=== PATIENT | male | born 1955 | race Caucasian/White ===

== ENCOUNTER 2017-03-16 10:56 | Inpatient (IN) | payer OTHER ==
[~2017-03-16] VITALS: Ht 167.6 cm; Wt 72.4 kg
[2017-03-16] MEDS ORDERED: morphine 4 MG/ML VIAL IV STA (11:19)
[2017-03-16] MEDS ORDERED: LIDOCAINE/MYLANTA 40 ML BTL PO STA (11:19)
[2017-03-16] MEDS ORDERED: FAMOTIDINE 20 MG TAB PO STA (11:19)
[2017-03-16] MEDS ORDERED: SOD CHLORIDE 0.9% 1,000 ML IV STA (11:19)
[2017-03-16] MEDS ORDERED: ONDANSETRON 4 MG INJ IV STA (11:19)
[2017-03-16] MEDS ORDERED: BELLADONNA/PHENOBARBITAL TAB PO STA (11:19)
[2017-03-16 11:37] LABS: BASOPHILS % 0.2 % (0.0-2.0); HEMATOCRIT 46.7 % (42.0-52.0); HEMOGLOBIN 15.2 g/dl (14.0-18.0); LYMPHOCYTES # 0.7 10^3/ul (0.8-2.9); LYMPHOCYTES % 4.5 % (15.0-51.0); MEAN CORPUSCULAR HEMOGLOBIN 28.1 pg (29.0-33.0); MEAN CORPUSCULAR HGB CONC 32.5 g/dl (32.0-37.0); MEAN CORPUSCULAR VOLUME 86.3 fl (82.0-101.0); MEAN PLATELET VOLUME 9.8 fl (7.4-10.4); MONOCYTES % 6.1 % (0.0-11.0); NEUTROPHIL # 14.2 10^3/ul (1.6-7.5); NEUTROPHILS % 88.8 % (39.0-77.0); PLATELET COUNT 208 10^3/UL (140-415); RED BLOOD COUNT 5.41 10^6/ul (4.70-6.10); RED CELL DISTRIBUTION WIDTH 12.7 % (11.5-14.5); WHITE BLOOD COUNT 15.9 10^3/ul (4.8-10.8)
[2017-03-16 11:56] LABS: ALANINE AMINOTRANSFERASE 42 IU/L (13-69); ALBUMIN 4.3 g/dl (3.3-4.9); ALBUMIN/GLOBULIN RATIO 1.16; ALKALINE PHOSPHATASE 101 IU/L (42-121); ANION GAP 21 (8-16); ASPARTATE AMINO TRANSFERASE 51 IU/L (15-46); BILIRUBIN,INDIRECT 0.3 mg/dl (0-1.1); BILIRUBIN,TOTAL 0.3 mg/dl (0.2-1.3); BLOOD UREA NITROGEN 15 mg/dl (7-20); CALCIUM 9.5 mg/dl (8.4-10.2); CARBON DIOXIDE 28 mmol/L (21-31); CHLORIDE 101 mmol/L (97-110); CREATININE 0.79 mg/dl (0.61-1.24); GLUCOSE 137 mg/dl (70-220); POTASSIUM 3.4 mmol/L (3.5-5.1); SODIUM 147 mmol/L (135-144)
[2017-03-16 12:18] LABS: TROPONIN-I < 0.012 ng/ml (0.00-0.12)
--- NOTE | 2017-03-16 12:59 | RADRPT ---
PROCEDURE: CT scan of the abdomen and pelvis without IV contrast. CLINICAL INDICATION: 61-year-old male with abdominal pain. TECHNIQUE: Thin section axial, coronal and sagittal images were performed through the abdomen and pelvis without contrast. Radiation Dose: CTDI: 8.5 and DLP: 505. One or more of the following dose reduction techniques were used: - Automated exposure control. - Adjustment of the mA and/or kV according to patient size. Use of iterative reconstruction technique. COMPARISON: Chest x-ray 09/29/2016 06:18 a.m. FINDINGS: Soft tissues: There is a midline umbilical hernia measuring 1.6 cm transverse by 1.4 cm AP.. Lungs and pleural spaces: There are peripheral areas of atelectasis in the bases of the lungs. No alveolar infiltrate, pulmonary nodule or pleural effusion is identified. Heart: The heart is enlarged. No pericardial effusion is identified. The liver, common bile duct and gallbladder: The liver is enlarged measuring 17.8 cm AP. There are small gallstones in the gallbladder without evidence of gallbladder wall thickening. Small amount o f pericholecystic fluid is not excluded. This is better evaluated with ultrasound. No hepatic mass or intrahepatic biliary ductal dilatation is identified. Gastrointestinal: There is a small hiatal hernia with fluid noted in the stomach. No gastric wall t hickening is identified. There are bilateral inguinal hernias which contain fat but no intra-abdomin al. The small bowel loops have a normal caliber. There is no evidence of diverticulosis or divertic ulitis. There is a normal vermiform appendix. Pancreas: Diffuse stranding and enlargement of the pancreas consistent with pancreatitis. No pancre atic pseudocyst is identified. There is only trace ascites. A contrast-enhanced CT scan with arter ial phase imaging can be performed to evaluate for areas of pancreatic necrosis and clinically neede d. Kidneys, bladder and adrenal glands : The adrenal glands are normal. Kidneys and urinary bladder ar e normal. Spleen: Normal. Lymph nodes: Normal. There are small but normal appearing inguinal lymph nodes. Reproductive system and pelvis : The prostate gland is enlarged measuring 5.2 x 3.9 cm. Bony elements: There are degenerative osteophytes in the lower thoracic and lumbar spine. No acute bony fracture or bone metastasis is identified. There are degenerative changes in the right articul ar facets at the lumbosacral junction. Vasculature: There are vascular calcifications in the abdominal aorta and right common iliac artery. IMPRESSION: 1. Acute pancreatitis with trace ascites. No pancreatic pseudocyst is identified. 2. Cardiomegaly with scattered areas of atelectasis in the bases of the lungs. 3. Hepatomegaly with small gallstones in the gallbladder. Ultrasound can be performed to evaluate for possible pericholecystic fluid if clinically indicated. 4. Small hiatal hernia. 5. Atherosclerotic vascular disease. 6. Midline umbilical hernia containing fat measuring 1.4 cm AP by 1.7 cm transverse. There are bila teral inguinal hernias containing fat. 7. Right degenerative facet arthropathy is at L5-S1. RPTAT:AAJJ Physician Warren Date Time Electronically viewed and signed by Julian Velasquez Physician on 03/16/2017 12:59 ROQUE/
[2017-03-16] MEDS ORDERED: SOD CHLORIDE 0.9% 1,000 ML IV ONE (13:30)
--- NOTE | 2017-03-16 13:38 | ERA ---
ER Documentation Chief Complaint Date/Time DATE: 03/16/17 TIME: 13:30 Chief Complaint HPI 61-year-old man presents with sudden onset severe epigastric abdominal pain and multiple episodes of clear nonbloody nonbilious emesis beginning 6 AM this morning shortly after eating a light breakfast. Patient states he had a similar episode a month ago which resolved spontaneously. He does have a history of alcoholism but denies recent drinking, no blood per rectum or melena , no fevers or chills, no trauma, no chest pain or shortness of breath. Abdominal pain has been nonradiating nonexertional. ROS All systems reviewed and are negative except as per history of present illness. Medications Home Meds No Active Prescriptions or Reported Meds Allergies Allergies: Coded Allergies: No Known Allergy (Unverified , 03/16/17) PMhx/Soc Alcoholism Medical and Surgical Hx: Unable to obtain Hx Alcohol Use: Yes Hx Substance Use: No Hx Tobacco Use: No Smoking Status: Never smoker FmHx Family History: No diabetes Physical Exam Vitals Vital Signs Date Time Temp Pulse Resp B/P Pulse Ox O2 Delivery O2 Flow Rate FiO2 03/16/17 13:14 98.0 79 18 138/71 99 03/16/17 10:59 98.0 63 18 147/70 99 Physical Exam GENERAL: Well-developed, well-nourished, moderate discomfort, afebrile HEENT: Moist mucous membranes, pink conjunctiva, no cervical spine tenderness or step-off deformities, no goiter, no jaundice or icterus, extraocular movements intact without pain. No submandibular induration, and no pharyngeal erythema NEURO: Alert and oriented 3, cranial nerves II through XII intact bilaterally, pupils equal round reactive to light, no focal deficits or facial asymmetry, sensation intact distally Strength 5/5 in upper and lower extremities bilaterally CARDIAC: Regular rate and rhythm, no murmurs rubs or gallops LUNGS: Clear bilaterally no wheezing crackles or stridor ABDOMEN: Epigastric tenderness to touch with voluntary guarding, no rigidity or SKIN: Warm and dry to touch, no abrasions, contusions, or hematomas, no lacerations, no ecchymosis, no target lesions, and without ulcers EXTREMITIES: No clubbing cyanosis or edema, calves are bilaterally symmetrical, no Homans sign, no popliteal cord sign. Distal pulses equal and bilateral PSYCH: Normal affect without agitation or irritability Result Diagram: 03/16/17 1123 03/16/17 1123 Results 24 hrs Laboratory Tests Test 03/16/17 11:23 03/16/17 12:50 White Blood Count 15.910^3/ul Red Blood Count 5.4110^6/ul Hemoglobin 15.2g/dl Hematocrit 46.7% Mean Corpuscular Volume 86.3fl Mean Corpuscular Hemoglobin 28.1pg Mean Corpuscular Hemoglobin Concent 32.5g/dl Red Cell Distribution Width 12.7% Platelet Count 22765^3/UL Mean Platelet Volume 9.8fl Neutrophils % 88.8% Lymphocytes % 4.5% Monocytes % 6.1% Eosinophils % 0.0% Basophils % 0.2% Nucleated Red Blood Cells % 0.0/100WBC Neutrophils # 14.210^3/ul Lymphocytes # 0.710^3/ul Monocytes # 1.010^3/ul Eosinophils # 0.010^3/ul Basophils # 0.010^3/ul Nucleated Red Blood Cells # 0.010^3/ul Sodium Level 147mmol/L Potassium Level 3.4mmol/L Chloride Level 101mmol/L Carbon Dioxide Level 28mmol/L Anion Gap 21 Blood Urea Nitrogen 15mg/dl Creatinine 0.79mg/dl Glucose Level 137mg/dl Calcium Level 9.5mg/dl Total Bilirubin 0.3mg/dl Direct Bilirubin 0.00mg/dl Indirect Bilirubin 0.3mg/dl Aspartate Amino Transf (AST/SGOT) 51IU/L Alanine Aminotransferase (ALT/SGPT) 42IU/L Alkaline Phosphatase 101IU/L Troponin I < 0.012ng/ml Total Protein 8.0g/dl Albumin 4.3g/dl Globulin 3.70g/dl Albumin/Globulin Ratio 1.16 Lipase 46736M/L Prothrombin Time 12.7Sec Prothrombin Time Ratio 1.0 INR International Normalized Ratio 0.95 Activated Partial Thromboplast Time 24.3Sec Free Thyroxine 1.15ng/dl Current Medications Medications (Trade) Dose Ordered Sig/Elisa Route PRN Reason Start Time Stop Time Status Last Admin Dose Admin Sodium Chloride (NS) 1,000 ml @ 1,000 mls/hr Q1H STAT IV 03/16/17 11:19 03/16/17 12:18 DC 03/16/17 11:45 Morphine Sulfate (morphine) 4 mg ONCE STAT IV 03/16/17 11:19 03/16/17 11:21 DC 03/16/17 11:45 Ondansetron HCl (Zofran Inj) 4 mg ONCE STAT IV 03/16/17 11:19 03/16/17 11:21 DC 03/16/17 11:45 Famotidine (Pepcid) 40 mg ONCE STAT PO 03/16/17 11:19 03/16/17 11:21 DC 03/16/17 11:46 Miscellaneous Medication (Gi Cocktail (2)) 40 ml ONCE STAT PO 03/16/17 11:19 03/16/17 11:21 DC 03/16/17 11:46 Belladonna/ Phenobarbital 2 tab 2 tab ONCE STAT PO 03/16/17 11:19 03/16/17 11:21 DC 03/16/17 11:46 Sodium Chloride (NS) 1,000 ml @ 2,000 mls/hr Q30M ONCE IV 03/16/17 13:30 03/16/17 13:59 DC 03/16/17 13:43 Procedures/MDM IV line was established patient was placed on motor vehicle inspector rhythm strip revealed a sinus rhythm at about 70 bpm. Patient was afebrile. I administered 1 L normal saline intravenously, morphine 4 mg IV, Zofran 4 mg IV , GI cocktail 50 cc p.o., and famotidine 40 mg p.o. with good effect. CT scan of the abdomen and pelvis reveals inflammatory changes of the pancreas and gallstones in the gallbladder. Overall concerning for acute cholecystitis and choledocholithiasis with pancreatitis. Please refer to radiologist dictation for full report. A second peripheral IV access was placed and I ordered 2 more liters of normal saline intravenously. CBC reveals a leukocytosis of 16, electrolytes reveal hypokalemia at 3.4 otherwise unremarkable, liver function tests are normal, lipase elevated at about 26,000, troponin negative EKG performed, read by me: 66 bpm, normal sinus rhythm, normal axis, no acute ST segment changes, narrow QRS complex, with good R-wave progression in precordial leads. Emergent GI and surgical consultations were obtained. I spoke to both the federal aid coordinator and surgeon investment professional regarding the patient's presentation and symptomatology. Critical Care: Time: 35 minutes, this was time separate from other billable procedures. Treatments/Evaluations: Close monitoring and treatment of unstable vital signs, cardiorespiratory, and neurologic status, while maintaining tight balance of fluid, respiratory, and cardiac interventions. Patient will be admitted to telemetry setting for continued medical management and GI and surgical consultations Gallbladder ultrasound was performed revealing thickened gallbladder wall and gallstones concerning for acute cholecystitis. Please refer to radiologist dictation for full report. Departure Diagnosis: Primary Impression: Acute cholecystitis Additional Impressions: Acute pancreatitis Qualified Code: K85.10 - Acute biliary pancreatitis, unspecified complication status Acute hypokalemia Condition: DELIO Urbano MD Mar 16, 2017 13:38
--- NOTE | 2017-03-16 14:02 | CONS ---
Date/Time of Note Date/Time of Note DATE: 03/16/17 TIME: 14:01 Assessment/Plan Assessment/Plan Additional Assessment/Plan [facility] INPATIENT CONSULTATION NOTE DATE OF SERVICE: 03/16/2017 PLACE OF SERVICE: [facility], emergency department ASSESSMENT AND PLAN: A very-pleasant 61-year-old gentleman with a few comorbidities being admitted through the emergency department at [facility] for acute pancreatitis, cholelithiasis, and possible early acute cholecystitis. Patient requires further workup including gastroenterology as well as cardiology given the cardiomegaly. Once his pancreatitis has subsided, he could benefit from elective or semielective laparoscopic cholecystectomy. I plan on performing this operation to is the end of admission when he is medically more stable. I explained all this to the patient (no family present during my discussions with the patient) and answered all his questions to the best my ability. Patient appeared to understand and agree with the plans. With above assessment, I've recommended the followin. Admit to hospital 2. N.p.o. 3. Intravenous fluids 4. Symptom control 5. May benefit from antimicrobial coverage given possibility of acute cholecystitis 6. Cardiac clearance with cardiology consultation 7. Gastroneurology consultation 8. MRCP 9. Strict I's and O's 10. Careful following of vital signs and clinical condition Thank you very much for having me involved in the care of this very pleasant patient and wonderful family. If you have any questions, please feel free to contact me at [phone]. Nature of presenting problem: High severity Please note that, given the multiple number of diagnoses or management options, the moderate amount and/or complexity of data needed to be reviewed, and I risk of complications and/or morbidity or mortality, this qualifies as moderate complexity type of decision-making. Disclaimer: Inadvertent spelling and grammatical errors are likely due to EHR/ dictation software use and do not reflect on the quality of delivered patient care. Also, please note that the electronic time recorded on this node does not necessarily reflect the actual time of the visit. Updated clinical summary: A very pleasant 61-year-old gentleman with a few comorbidities being admitted through the emergency department at [facility] for acute pancreatitis, cholelithiasis, and possible early acute cholecystitis. Comorbidities: 1. Acute pancreatitis. 2. Cardiomegaly with scattered areas of atelectasis in the bases of the lungs. 3. Hepatomegaly with small gallstones in the gallbladder. 4. Small hiatal hernia. 5. Atherosclerotic vascular disease. 6. Midline umbilical hernia containing fat measuring 1.4 cm AP by 1.7 cm transverse. 7. Bilateral inguinal hernias containing fat. 8. Right degenerative facet arthropathy is at L5-S1. CONSULTATION REQUESTED BY: Anu Jasso MD HISTORY OF PRESENT ILLNESS: The patient is a very pleasant 61-year-old gentleman without significant known past history presenting with abdominal pain since 6:00 on the morning of admission associated with multiple episodes of clear and nonbloody and nonbilious emesis. Patient reported having similar symptoms as of a month ago. No prior known or reported episodes of pancreatitis. Patient reports no other medical issues and does not report taking any medications at home. He describes the pain as a generalized mid upper quadrant pain, approximately 6-7 out of 10 at its worse with some radiation to his back. No alleviating or exacerbating factors. ALLERGIES: NO KNOWN DRUG ALLERGIES MEDICATIONS Documented in the electronic records and reviewed by me. Please see the electronic records for details, as well as details for inpatient medications which were also reviewed by me. SOCIAL HISTORY: -Tob;-ETOH (reports drinking alcohol in the past. Unknown amounts);-IVDU FAMILY HISTORY: There are no significant medical, surgical or oncologic issues in the family as reported by the patient or reflected in the chart. REVIEW OF SYSTEMS: Other than mentioned above, there were no other pertinent positives or pertinent negatives in an otherwise complete 14 point review of systems. PHYSICAL EXAMINATION GENERAL: The patient appears to be a very pleasant gentleman of descent lying in bed, appearing stated age,] and otherwise in no acute distress. BMI: 23.4 VITAL SIGNS: Temperature 98.0, blood pressure 147/70, pulse 63, respirate 18, pulse oximetry 99%. (please also see auto important data if available as well as the electronic records) HEENT: Normocephalic and atraumatic. Extraocular muscles and hearing are grossly intact bilaterally and symmetrically. Sclerae are nonicteric. Oral cavity is clear; oral mucosa appear to be pink and moist. Dentition: fair. NECK: Supple. There is no lymphadenopathy or JVD. There is no submental, submandibular or supraclavicular lymphadenopathy. CHEST: Rises symmetrically with each breath; patient is breathing comfortably. There are no audible wheezes, rales or rhonchi on the gross exam. HEART: Pulse is regular and palpable on the right wrist. Capillary refill is normal. Carotid pulses are palpable bilaterally and symmetrically in the neck. EXTREMITIES: Lower extremities contain no pitting edema around the ankles bilaterally and symmetrically. ABDOMEN: Abdomen is soft, for the most part nontender and nondistended. No evidence of ascites, organomegaly, caput medusae, engorged subcutaneous veins, or other abnormalities. There are no peritoneal signs or guarding. SKIN: Appears to be pink and feels warm to touch. NEUROLOGIC: Awake, alert, and follows commands appropriately. LABORATORY DATA: [facility] 03/16/2017: White blood cell count 15.9, hemoglobin 15.2, platelets 208. Sodium 147, potassium 3.4, CO2 28, creatinine 0.79, total bilirubin 0.3, AST 51, ALT 42, alkaline phosphatase 101, albumin 4.3, lipase 63616 IMAGING: See electronic chart. Please note that I've personally reviewed all pertinent available images and I agree in general with their overall reported findings. CT scan abdomen and pelvis [facility] 03/16/2017 IMPRESSION: 1. Acute pancreatitis with trace ascites. No pancreatic pseudocyst is identified. 2. Cardiomegaly with scattered areas of atelectasis in the bases of the lungs. 3. Hepatomegaly with small gallstones in the gallbladder. Ultrasound can be performed to evaluate for possible pericholecystic fluid if clinically indicated. 4. Small hiatal hernia. 5. Atherosclerotic vascular disease. 6. Midline umbilical hernia containing fat measuring 1.4 cm AP by 1.7 cm transverse. There are bilateral inguinal hernias containing fat. 7. Right degenerative facet arthropathy is at L5-S1. Right upper quadrant ultrasound [facility] 03/16/2017 IMPRESSION: Pending (my personal impression reviewing the live images doing the ultrasound was consistent with thickened gallbladder wall and presence of cholelithiasis and slight perihepatic fluid consistent with acute pancreatitis) Consultation Date/Type/Reason Admit Date/Time Social History Smoking Status: Never smoker Exam/Review of Systems Vital Signs Vitals Vital Signs Date Time Temp Pulse Resp B/P Pulse Ox O2 Delivery O2 Flow Rate FiO2 03/16/17 10:59 98.0 63 18 147/70 99 Results Result Diagram: 03/16/17 1123 03/16/17 1123 Results 24 hrs Laboratory Tests Test 03/16/17 11:23 White Blood Count 15.9 H Red Blood Count 5.41 Hemoglobin 15.2 Hematocrit 46.7 Mean Corpuscular Volume 86.3 Mean Corpuscular Hemoglobin 28.1 L Mean Corpuscular Hemoglobin Concent 32.5 Red Cell Distribution Width 12.7 Platelet Count 208 Mean Platelet Volume 9.8 Neutrophils % 88.8 H Lymphocytes % 4.5 L Monocytes % 6.1 Eosinophils % 0.0 Basophils % 0.2 Nucleated Red Blood Cells % 0.0 Neutrophils # 14.2 H Lymphocytes # 0.7 L Monocytes # 1.0 H Eosinophils # 0.0 Basophils # 0.0 Nucleated Red Blood Cells # 0.0 Sodium Level 147 H Potassium Level 3.4 L Chloride Level 101 Carbon Dioxide Level 28 Anion Gap 21 H Blood Urea Nitrogen 15 Creatinine 0.79 Glucose Level 137 Calcium Level 9.5 Total Bilirubin 0.3 Direct Bilirubin 0.00 Indirect Bilirubin 0.3 Aspartate Amino Transf (AST/SGOT) 51 H Alanine Aminotransferase (ALT/SGPT) 42 Alkaline Phosphatase 101 Troponin I < 0.012 Total Protein 8.0 Albumin 4.3 Globulin 3.70 H Albumin/Globulin Ratio 1.16 Lipase 66383 H ALMAZ HERNÁNDEZ M.D. Mar 16, 2017 14:02
--- NOTE | 2017-03-16 14:07 | RADRPT ---
PROCEDURE: Abdominal Ultrasound (right upper quadrant). CLINICAL INDICATION: Abdominal pain TECHNIQUE: Multiple real-time longitudinal and transverse images of the right upper quadrant of th e abdomen were acquired utilizing a curved array transducer. Images were reviewed on a high-resoluti on PACS workstation. COMPARISON: CT abdomen pelvis 03/16/2017 FINDINGS: The liver is normal in size and echogenicity. No focal masses are identified. There is no evidenc e of intra or extrahepatic ductal dilatation. The common bile duct is not visualized. There is no obvious intra or extrahepatic ductal dilatation. Gallstones are identified within the gallbladder. There is moderate gallbladder wall thickening measuring up to 7.6 mm The visualized portions of the pancreas are unremarkable with obscuration of the tail of the pancrea s. No free fluid is identified. There is no evidence of right hydronephrosis or renal calcification. The right kidney measures 11.5 cm in length. The visualized portions of the aorta and inferior vena cava are within normal limits. IMPRESSION: 1. Cholelithiasis and gallbladder wall thickening. 2. Otherwise unremarkable right upper quadrant ultrasound. RPTAT: KK .Dylan New MD, MD Date Time Electronically viewed and signed by .Dylan New MD, MD on 03/16/2017 14:06 .B/
[2017-03-16] MEDS ORDERED: ONDANSETRON 4 MG INJ IV PRN (15:00)
[2017-03-16] MEDS ORDERED: MAGNESIUM HYDROXIDE 30ML CUP PO PRN (15:00)
[2017-03-16] MEDS ORDERED: NITROGLYCERIN (SL) 0.4 MG TAB SL PRN (15:00)
[2017-03-16] MEDS ORDERED: LORAZEPAM 2 MG INJ IV PRN (15:00)
[2017-03-16] MEDS ORDERED: morphine 2 MG INJ IV PRN (15:00)
[2017-03-16] MEDS ORDERED: DOCUSATE SODIUM 100 MG CAP PO PRN (15:00)
[2017-03-16] MEDS ORDERED: NA PHOSPHATE/BIPHOS 133 ML ENEMA PR PRN (15:00)
[2017-03-16] MEDS ORDERED: hydrALAzine 20 MG INJ IV PRN (15:00)
[2017-03-16] MEDS ORDERED: NACL 0.9% 3 ML SYG IV SCH (15:00)
[2017-03-16] MEDS ORDERED: ALBUTEROL/IPRATROPIUM (NEB) 3 ML AMP HHN PRN (15:00)
[2017-03-16] MEDS ORDERED: HYDROCODONE/APAP (5/325) TAB PO PRN ×2 (15:00)
[2017-03-16 15:14] VITALS: TEMP 98
--- NOTE | 2017-03-16 15:24 | CONS ---
Date/Time of Note Date/Time of Note DATE: 03/16/17 TIME: 15:09 Assessment/Plan Assessment/Plan Additional Assessment/Plan Assessment * Abdominal pain Gallstone pancreatitis CT abdomen Acute pancreatitis with trace ascites. No pancreatic pseudocyst is identified. Cardiomegaly with scattered areas of atelectasis in the bases of the lungs. . Hepatomegaly with small gallstones in the gallbladder. Ultrasound can be performed to evaluate for possible pericholecystic fluid if clinically indicated. . Small hiatal hernia. Atherosclerotic vascular disease. Midline umbilical hernia containing fat measuring 1.4 cm AP by 1.7 cm transverse. There are bilateral inguinal hernias containing fat. . Right degenerative facet arthropathy is at L5-S1. Plan * NPO * fluid resuscitation * Trend lipase and transaminase levels * adequate pain control * Pantoprazole 40 mg BID * MRCP Consultation Date/Type/Reason Admit Date/Time Date of Consultation: Mar 16, 2017 Type of Consultation: Gastroenterology Reason for Consultation abdominal pain Referring Provider: JEAN HALLMAN Hx of Present Illness 61 year old male with past medical history of hypertension presented in the emergency room because of abdominal pain.Present condition apparently started at around 6 am as vague sharp abdominal pain gradually becoming generalized, with associated nausea and non bilious vomiting x6 times.He denies hematemesis, fever chest pain,nor hematochezia.He claims to have had alcohol a month ago Emergency room course revealed leukocytosis 15.9,hemoglobin 15.2,hematocrit 46.7 ,Na 147 ,K 3.4 AST 51,Lipase 82189.CT scan of abdomen 1. Acute pancreatitis with trace ascites. No pancreatic pseudocyst is identified. 2. Cardiomegaly with scattered areas of atelectasis in the bases of the lungs. 3. Hepatomegaly with small gallstones in the gallbladder. Ultrasound can be performed to evaluate for possible pericholecystic fluid if clinically indicated. 4. Small hiatal hernia. 5. Atherosclerotic vascular disease. 6. Midline umbilical hernia containing fat measuring 1.4 cm AP by 1.7 cm transverse. There are bilateral inguinal hernias containing fat. 7. Right degenerative facet arthropathy is at L5-S1. Ultrasound of abdomen 1. Cholelithiasis and gallbladder wall thickening. 2. Otherwise unremarkable right upper quadrant ultrasound Past Medical History Medical History: hypertension Past Surgical History Past Surgical Hx: no surgical history Family History Significant Family History: no pertinent family hx Social History Smoking Status: Never smoker Exam/Review of Systems Vital Signs Vitals Vital Signs Date Time Temp Pulse Resp B/P Pulse Ox O2 Delivery O2 Flow Rate FiO2 03/16/17 10:59 98.0 63 18 147/70 99 Exam Constitutional: alert, oriented, well developed Psych: nl mood/affect Head: atraumatic, normocephalic Eyes: PERRL, nl conjunctiva, nl sclera ENMT: nl nasal mucosa & septum Neck: non-tender, supple Respiratory: clear to auscultation, normal air movement Cardiovascular: nl pulses, regular rate and rhythm Gastrointestinal: bowel sounds, distended, nl liver, spleen, soft, tender, No rebound or guarding Musculoskeletal: nl extremities to inspection, nl gait and stance Extremities: normal pulses Neurological: nl speech, nl strength Skin: nl turgor, No rash or lesions Lymph: nl lymph nodes Results Result Diagram: 03/16/17 1123 03/16/17 1123 Results 24 hrs Laboratory Tests Test 03/16/17 11:23 White Blood Count 15.9 H Red Blood Count 5.41 Hemoglobin 15.2 Hematocrit 46.7 Mean Corpuscular Volume 86.3 Mean Corpuscular Hemoglobin 28.1 L Mean Corpuscular Hemoglobin Concent 32.5 Red Cell Distribution Width 12.7 Platelet Count 208 Mean Platelet Volume 9.8 Neutrophils % 88.8 H Lymphocytes % 4.5 L Monocytes % 6.1 Eosinophils % 0.0 Basophils % 0.2 Nucleated Red Blood Cells % 0.0 Neutrophils # 14.2 H Lymphocytes # 0.7 L Monocytes # 1.0 H Eosinophils # 0.0 Basophils # 0.0 Nucleated Red Blood Cells # 0.0 Sodium Level 147 H Potassium Level 3.4 L Chloride Level 101 Carbon Dioxide Level 28 Anion Gap 21 H Blood Urea Nitrogen 15 Creatinine 0.79 Glucose Level 137 Calcium Level 9.5 Total Bilirubin 0.3 Direct Bilirubin 0.00 Indirect Bilirubin 0.3 Aspartate Amino Transf (AST/SGOT) 51 H Alanine Aminotransferase (ALT/SGPT) 42 Alkaline Phosphatase 101 Troponin I < 0.012 Total Protein 8.0 Albumin 4.3 Globulin 3.70 H Albumin/Globulin Ratio 1.16 Lipase 25044 H Medications Medications Current Medications Ondansetron HCl (Zofran Inj) 4 mg Q6H PRN IV NAUSEA AND/OR VOMITING; Start at 15:00; Status UNV Acetaminophen (Tylenol Tab) 650 mg Q6H PRN PO PAIN LEVEL 1-3 OR FEVER; Start at 15:00; Status UNV Acetaminophen/ Hydrocodone Bitart ([place] (5/325)) 1 tab Q6H PRN PO MODERATE PAIN LEVEL 4-6; Start 03/16/17 at 15:00; Status UNV Acetaminophen/ Hydrocodone Bitart ([place] (5/325)) 2 tab Q6H PRN PO SEVERE PAIN LEVEL 7-10; Start 03/16/17 at 15:00; Status UNV Morphine Sulfate (morphine) 2 mg Q4H PRN IV SEVERE PAIN LEVEL 7-10; Start 03/16 at 15:00; Status UNV Docusate Sodium (Colace) 100 mg Q12H PRN PO CONSTIPATION; Start 03/16/17 at 15: 00; Status UNV Magnesium Hydroxide (Milk Of Mag) 30 ml DAILY PRN PO CONSTIPATION; Start at 15:00; Status UNV Sodium Biphosphate/ Sodium Phosphate (Fleet Enema) 133 ml DAILY PRN [place] CONSTIPATION; Start 03/16/17 at 15:00; Status UNV Famotidine (Pepcid Iv) 20 mg Q12 IV ; Start 03/16/17 at 21:00; Status UNV Heparin Sodium (Porcine) 5000 unit 5,000 unit Q12 SC ; Start 03/16/17 at 21:00; Status UNV Sodium Chloride (1/2 NS) 1,000 ml @ 75 mls/hr [id number] IV ; Start 03/16/17 at 14 :37; Status UNV Lorazepam 0.5 mg 0.5 mg Q6H PRN IV ANXIETY; Start 03/16/17 at 15:00; Status UNV Piperacillin Sod/ Tazobactam Sod (Zosyn 3.375gm/ 100 ml (Pmx)) 100 ml @ 200 mls /hr Q6 IVPB ; Start 03/16/17 at 18:00; Status UNV Hydralazine HCl (Apresoline) 10 mg Q6H PRN IV ELEVATED BLOOD PRESSURE; Start at 15:00; Status UNV Nitroglycerin (Nitroglycerin (Sl Tab) 0.4 Mg) 1 tab Q5M PRN SL ANGINA; Start at 15:00; Status UNV MICHI BURROWS MD Mar 16, 2017 15:19 MICHI BURROWS MD Mar 16, 2017 15:19
[2017-03-16 15:29] LABS: INR 0.95; PARTIAL THROMBOPLASTIN TIME 24.3 Sec (25.0-35.0); PROTIME 12.7 Sec (12.2-14.2)
[2017-03-16 17:02] VITALS: BP 186/82; PULSE 76; RESP 18
[2017-03-16 17:11] VITALS: PULSE 72
[2017-03-16 18:35] VITALS: BP 186/82; RESP 18
[2017-03-16] MEDS: FAMOTIDINE 20 MG INJ IV SCH (19:00)
[2017-03-16] MEDS: SOD CHLORIDE 0.45% 1,000 ML IV SCH (19:00)
[2017-03-16] MEDS: HEPARIN 5,000 UNIT/0.5 ML VIAL SC SCH (19:27)
[2017-03-16 19:51] VITALS: BP 152/74; RESP 19
[2017-03-16 20:00] VITALS: Ht 167.6 cm; Wt 72.4 kg
[2017-03-16 20:17] VITALS: PULSE 84
[2017-03-16] MEDS: PIPER-TAZO 3.375 GM IV (PMX) 100 ML IVPB SCH (20:18)
[2017-03-17] VITALS (13 sets, daily range): BP systolic 141–168; BP diastolic 60–84; PULSE 59–88; RESP 16–20
--- NOTE | 2017-03-17 00:22 | RADRPT ---
PROCEDURE: MRI abdomen / MRCP CLINICAL INDICATION: Gallstone pancreatitis TECHNIQUE: MRI of the abdomen is performed without contrast utilizing axial T2 and T2 fat suppress ion sequences as well as in and out of phase imaging. The MRCP is performed and the MIP series subm itted for review. COMPARISON: Gallbladder ultrasound 03/16/2017 FINDINGS: The images are limited by patient motion artifact Visualized lower thorax: There is no evidence for consolidation or pleural effusion. Liver: Normal in size, contour and signal intensity with no evidence for masses or ductal dilatatio n. Gallbladder: Abnormal wall thickening is present. The gallstones seen on ultrasound are not well v isualized. Mild pericholecystic inflammation is present. Common bile duct: There is no filling defect to suggest choledocholithiasis. The caliber of the du ct is normal estimated at 3.1 mm. The MRCP shows no evidence for intrahepatic or extrahepatic ducta l dilatation, the ductal system is smoothly aligned with no evidence for filling defect. Pancreas: Hyperintense T2 signal adjacent to the pancreatic body and tail and in the left anterior pararenal space is consistent with ace pancreatic phlegmon related to pancreatitis. There is no si gnal abnormality within the pancreatic parenchyma to suggest necrosis and no pancreatic ductal dilat ation is present. Spleen: Normal in size with no masses evident. Adrenal glands: Unremarkable bilaterally. Kidneys: Normal in size with no evidence for masses or hydronephrosis. Incidental tiny hyperintense T2 cyst of the lower pole on the right is present. Stomach, visualized small bowel and visualized large intestine: The stomach, visualized small bowel and visualized colon loops are normal in caliber. There is a small amount of perihepatic and perisp lenic ascites. Abdominal aorta: Normal in caliber estimated at 2 cm. Inferior vena cava: Unremarkable. Vertebral bodies and osseous structures: Grossly normal. Musculature and soft tissues: No obvious abnormalities are seen. RPTAT:HJJR IMPRESSION: 1. Motion artifact limits the exam. 2. Peripancreatic phlegmon adjacent to the pancreatic tail and body with phlegmon in the left great er than right anterior pararenal spaces but no evidence of pancreatic necrosis on this unenhanced ex am. 3. Gallbladder wall thickening and pericholecystic inflammation concerning for cholecystitis, the ga llstone is better visualized on the earlier ultrasound. 4. Normal MRCP without evidence of choledocholithiasis. 5. Small amount of perihepatic and perisplenic ascites.. Bridger Alicea Physician Date Time Electronically viewed and signed by Bridger Alicea Physician on 03/17/2017 00:22 JR/
[2017-03-17] MEDS: PIPER-TAZO 3.375 GM IV (PMX) 100 ML IVPB SCH ×5 (00:54→23:48)
[2017-03-17] MEDS: SOD CHLORIDE 0.45% 1,000 ML IV SCH ×4 (03:57→23:55)
[2017-03-17 07:33] LABS: BASOPHILS % 0.3 % (0.0-2.0); EOSINOPHILS % 0.1 % (0.0-7.0); HEMATOCRIT 42.4 % (42.0-52.0); LYMPHOCYTES # 1.1 10^3/ul (0.8-2.9); LYMPHOCYTES % 8.9 % (15.0-51.0); MEAN CORPUSCULAR HEMOGLOBIN 28.3 pg (29.0-33.0); MEAN CORPUSCULAR VOLUME 85.7 fl (82.0-101.0); MEAN PLATELET VOLUME 10.2 fl (7.4-10.4); MONOCYTE # 0.6 10^3/ul (0.3-0.9); MONOCYTES % 5.1 % (0.0-11.0); NEUTROPHIL # 10.6 10^3/ul (1.6-7.5); NEUTROPHILS % 85.2 % (39.0-77.0); PLATELET COUNT 191 10^3/UL (140-415); RED BLOOD COUNT 4.95 10^6/ul (4.70-6.10); RED CELL DISTRIBUTION WIDTH 12.7 % (11.5-14.5); WHITE BLOOD COUNT 12.5 10^3/ul (4.8-10.8)
[2017-03-17 07:49] LABS: ALBUMIN 3.5 g/dl (3.3-4.9); BILIRUBIN,INDIRECT 0.5 mg/dl (0-1.1); BILIRUBIN,TOTAL 0.5 mg/dl (0.2-1.3); TOTAL PROTEIN 6.5 g/dl (6.1-8.1)
[2017-03-17 07:49] LABS: ADD UMIC YES; UR ASCORBIC ACID NEGATIVE (NEGATIVE); UR BILIRUBIN (Dip) NEGATIVE (NEGATIVE); UR BLOOD (Dip) 1+ mg/dL (NEGATIVE); UR CLARITY CLEAR (CLEAR); UR COLOR YELLOW (YELLOW); UR GLUCOSE (Dip) NEGATIVE (NEGATIVE); UR KETONES (Dip) NEGATIVE (NEGATIVE); UR LEUKOCYTE ESTERASE (Dip) NEGATIVE Leu/ul (NEGATIVE); UR NITRITE (Dip) NEGATIVE (NEGATIVE); UR RBC 1 /HPF (0-5); UR TOTAL PROTEIN (Dip) NEGATIVE (NEGATIVE); UR UROBILINOGEN (Dip) NEGATIVE (NEGATIVE)
[2017-03-17 07:55] LABS: CHOL/HDL RATIO 2.7 RATIO
[2017-03-17 08:00] LABS: CALCIUM 8.8 mg/dl (8.4-10.2); CREATININE 0.82 mg/dl (0.61-1.24); MAGNESIUM 1.9 mg/dl (1.7-2.5); PHOSPHORUS 3.1 mg/dl (2.5-4.9); POTASSIUM 3.7 mmol/L (3.5-5.1)
[2017-03-17 08:05] LABS: BARBITURATES Negative (NEGATIVE); OPIATES Positive (NEGATIVE)
[2017-03-17 08:10] LABS: BENZODIAZEPINES Negative (NEGATIVE); CANNABINOIDS Negative (NEGATIVE); COCAINE Negative (NEGATIVE)
[2017-03-17 08:19] LABS: THYROID STIMULATING HORMONE 0.515 MIU/L (0.465-4.680)
[2017-03-17] MEDS: FAMOTIDINE 20 MG INJ IV SCH ×3 (08:53→20:17)
[2017-03-17] MEDS: HEPARIN 5,000 UNIT/0.5 ML VIAL SC SCH ×3 (09:01→20:25)
--- NOTE | 2017-03-17 10:47 | PN ---
Date/Time of Note Date/Time of Note DATE: 03/17/17 TIME: 10:39 Assessment/Plan VTE Prophylaxis VTE Prophylaxis Intervention: SCD's Lines/Catheters IV Catheter Type (from Nrs): Peripheral IV Assessment/Plan Assessment/Plan Assessment * Abdominal pain Acute pancreatitis MRCP . Peripancreatic phlegmon adjacent to the pancreatic tail and body with phlegmon in the left greater than right anterior pararenal spaces but no evidence of pancreatic necrosis on this unenhanced exam. . Gallbladder wall thickening and pericholecystic inflammation concerning for cholecystitis, the gallstone is better visualized on the earlier ultrasound. . Normal MRCP without evidence of choledocholithiasis. Cholelithiasis Plan * NPO * fluid resuscitation * Trend lipase and transaminase levels * adequate pain control * Pantoprazole 40 mg BID * case discussed with DR Varma, * further orders will depend on clinical course Subjective 24 Hr Interval Summary Free Text/Dictation * Course reviewed with RN * Patient seen and examined * abdominal pain improved * lipase levels [id number] * MRCP 1. Motion artifact limits the exam. 2. Peripancreatic phlegmon adjacent to the pancreatic tail and body with phlegmon in the left greater than right anterior pararenal spaces but no evidence of pancreatic necrosis on this unenhanced exam. 3. Gallbladder wall thickening and pericholecystic inflammation concerning for cholecystitis, the gallstone is better visualized on the earlier ultrasound. 4. Normal MRCP without evidence of choledocholithiasis. 5. Small amount of perihepatic and perisplenic ascites.. Exam/Review of Systems Vital Signs Vitals Vital Signs Date Time Temp Pulse Resp B/P Pulse Ox O2 Delivery O2 Flow Rate FiO2 03/17/17 08:31 64 03/17/17 07:16 98.1 16 150/78 97 03/16/17 17:02 Room Air Intake and Output 03/16/17 03/16/17 03/17/17 15:00 23:00 07:00 Intake Total 100 ml 850 ml Balance 100 ml 850 ml Exam Constitutional: alert, oriented Respiratory: clear to auscultation, normal air movement Cardiovascular: nl pulses, regular rate and rhythm Gastrointestinal: bowel sounds, soft, tender (diffuse), No rebound or guarding Musculoskeletal: nl extremities to inspection, nl gait and stance Extremities: normal pulses Neurological: nl speech, nl strength Skin: nl turgor, No rash or lesions Lymph: nl lymph nodes Results Result Diagram: 03/17/17 0637 03/17/17 0637 Results 24 hrs Laboratory Tests Test 03/16/17 11:23 03/16/17 12:50 03/17/17 06:37 03/17/17 06:40 White Blood Count 15.9 H 12.5 #H Red Blood Count 5.41 4.95 Hemoglobin 15.2 14.0 Hematocrit 46.7 42.4 Mean Corpuscular Volume 86.3 85.7 Mean Corpuscular Hemoglobin 28.1 L 28.3 L Mean Corpuscular Hemoglobin Concent 32.5 33.0 Red Cell Distribution Width 12.7 12.7 Platelet Count 208 191 Mean Platelet Volume 9.8 10.2 Neutrophils % 88.8 H 85.2 H Lymphocytes % 4.5 L 8.9 L Monocytes % 6.1 5.1 Eosinophils % 0.0 0.1 Basophils % 0.2 0.3 Nucleated Red Blood Cells % 0.0 0.0 Neutrophils # 14.2 H 10.6 H Lymphocytes # 0.7 L 1.1 Monocytes # 1.0 H 0.6 Eosinophils # 0.0 0.0 Basophils # 0.0 0.0 Nucleated Red Blood Cells # 0.0 0.0 Sodium Level 147 H 144 Potassium Level 3.4 L 3.7 Chloride Level 101 100 Carbon Dioxide Level 28 28 Anion Gap 21 H 20 H Blood Urea Nitrogen 15 17 Creatinine 0.79 0.82 Glucose Level 137 126 Calcium Level 9.5 8.8 Total Bilirubin 0.3 0.5 Direct Bilirubin 0.00 0.00 Indirect Bilirubin 0.3 0.5 Aspartate Amino Transf (AST/SGOT) 51 H 40 Alanine Aminotransferase (ALT/SGPT) 42 31 Alkaline Phosphatase 101 62 Troponin I < 0.012 Total Protein 8.0 6.5 # Albumin 4.3 3.5 Globulin 3.70 H Albumin/Globulin Ratio 1.16 Lipase 16929 H 9962 H Prothrombin Time 12.7 Prothrombin Time Ratio 1.0 INR International Normalized Ratio 0.95 Activated Partial Thromboplast Time 24.3 L Free Thyroxine 1.15 Phosphorus Level 3.1 Magnesium Level 1.9 Triglycerides Level 38 Cholesterol Level 134 LDL Cholesterol, Calculated 78 HDL Cholesterol 48 Cholesterol/HDL Ratio 2.7 Thyroid Stimulating Hormone (TSH) 0.515 Urine Color YELLOW Urine Clarity CLEAR Urine pH 5.0 Urine Specific [place] 1.020 Urine Ketones NEGATIVE Urine Nitrite NEGATIVE Urine Bilirubin NEGATIVE Urine Urobilinogen NEGATIVE Urine Leukocyte Esterase NEGATIVE Urine Microscopic RBC 1 Urine Microscopic WBC 0 Urine Hemoglobin 1+ H Urine Glucose NEGATIVE Urine Total Protein NEGATIVE Urine Opiates Screen Positive Urine Barbiturates Negative Urine Amphetamines Screen Negative Urine Benzodiazepines Screen Negative Urine Cocaine Screen Negative Urine Cannabinoids Negative Medications Medications Current Medications Ondansetron HCl (Zofran Inj) 4 mg Q6H PRN IV NAUSEA AND/OR VOMITING; Start at 15:00 Acetaminophen (Tylenol Tab) 650 mg Q6H PRN PO PAIN LEVEL 1-3 OR FEVER; Start at 15:00 Acetaminophen/ Hydrocodone Bitart ([place] (5/325)) 1 tab Q6H PRN PO MODERATE PAIN LEVEL 4-6; Start 03/16/17 at 15:00 Acetaminophen/ Hydrocodone Bitart ([place] (5/325)) 2 tab Q6H PRN PO SEVERE PAIN LEVEL 7-10; Start 03/16/17 at 15:00 Morphine Sulfate (morphine) 2 mg Q4H PRN IV SEVERE PAIN LEVEL 7-10; Start 03/16 at 15:00 Docusate Sodium (Colace) 100 mg Q12H PRN PO CONSTIPATION; Start 03/16/17 at 15: 00 Magnesium Hydroxide (Milk Of Mag) 30 ml DAILY PRN PO CONSTIPATION; Start at 15:00 Sodium Biphosphate/ Sodium Phosphate (Fleet Enema) 133 ml DAILY PRN [place] CONSTIPATION; Start 03/16/17 at 15:00 Famotidine (Pepcid Iv) 20 mg Q12 IV Last administered on 03/17/17 08:53; Admin Dose 20 MG; Start 03/16/17 at 16:09 Heparin Sodium (Porcine) 5000 unit 5,000 unit Q12 SC Last administered on 09:01; Admin Dose 5,000 UNIT; Start 03/16/17 at 16:10 Sodium Chloride (1/2 NS) 1,000 ml @ 75 mls/hr [id number] IV Last administered on 03/16/17 19:00; Admin Dose 75 MLS/HR; Start 03/16/17 at 14:37 Lorazepam 0.5 mg 0.5 mg Q6H PRN IV ANXIETY; Start 03/16/17 at 15:00 Piperacillin Sod/ Tazobactam Sod (Zosyn 3.375gm/ 100 ml (Pmx)) 100 ml @ 200 mls /hr Q6 IVPB Last administered on 03/17/17t 09:05; Admin Dose 200 MLS/HR; Start 03/16/17 at 18:00 Hydralazine HCl (Apresoline) 10 mg Q6H PRN IV ELEVATED BLOOD PRESSURE; Start at 15:00 Nitroglycerin (Nitroglycerin (Sl Tab) 0.4 Mg) 1 tab Q5M PRN SL ANGINA; Start at 15:00 DEJAH DIAZ NP Mar 17, 2017 10:47
--- NOTE | 2017-03-17 10:58 | HP ---
DATE OF ADMISSION: 03/16/2017 CHIEF COMPLAINT: This is a 61-year-old male with chief complaint of abdominal pain. HISTORY OF PRESENT ILLNESS: The patient is a 61-year-old male with a past medical history of hypertension and high cholesterol who presents with abdominal pain. Per family members the pain began this morning after eating some food. He said the pain also occurred about a month ago, but apparently he did not seek medical treatment at that time. Regarding this mornings pain he also had a vomiting episode x1 at home, nonbilious and nonbloody, and also again later when he came into the ER he had another vomiting episode nonbilious and nonbloody. Denied any chest pain. No headaches, dizziness or loss of consciousness. No diarrhea. No constipation. No upper or lower GI bleeding. No nausea. No arthralgias or myalgias. When he came into the ER today he had labs performed that showed an elevated white blood cell count of 16,000. He also had a lipase elevation of 25,900 and a sodium was slightly high at 147, and the surgeon and GI doctors were consulted in the ER to help come and see the patient. He also had a gallbladder ultrasound performed that showed cholelithiasis and gallbladder wall thickening, signs of acute cholecystitis and this was also seen on the CT of the abdomen and pelvis findings as well. PAST MEDICAL HISTORY: As stated above. ALLERGIES: NO KNOWN DRUG ALLERGIES. HOME MEDICATIONS: None. PAST SURGICAL HISTORY: None. FAMILY HISTORY: Noncontributory. SOCIAL HISTORY: Negative for smoking or IV drug abuse. Social drinker. VITAL SIGNS: T-max 98.0, pulse 63, respirations 18, blood pressure 147/70, O2 saturation is 99 percent on room air. PHYSICAL EXAMINATION: GENERAL: The patient is lying in bed answering questions appropriately. Son is at bedside. No acute distress. HEENT: Pupils are equal, round and reactive to light. Extraocular muscles are intact. NECK: Supple. No thyromegaly. LUNGS: Clear to auscultation bilaterally. CARDIOVASCULAR: S1, S2 heard. No murmurs, rubs or gallops. ABDOMEN: Mild tenderness to palpation in right upper quadrant area. No rebound or guarding. Normal bowel sounds. MUSCULOSKELETAL: No lower extremity edema bilaterally. NEUROLOGIC: No focal deficits. LABORATORY DATA: WBC 15.9, hemoglobin 15.2, hematocrit 46.2, platelet count 208,000. Sodium 147, potassium 3.4, chloride of 101, CO2 28, BUN 15, creatinine 0.79, glucose 137, again lipase 25,915. LFTs are essentially normal including normal bilirubin levels. AST is slightly high at 51. IMAGING: We mentioned the imaging results in the HPI. ASSESSMENT AND PLAN: The patient is a 61-year-old male coming in with signs of acute cholecystitis and pancreatitis. 1. Abdominal pain secondary to gallstones with cholecystitis along with pancreatitis: We will admit the patient and keep him NPO, give him IV fluids, give him antiemetic medicines, check TSH, A1c, lipid panel. Get GI and surgery consults per recommendation of Surgery Team, they want to get cardiac clearance. Most likely the patient will need to be NPO to treat his pancreatitis. We will put him on broad spectrum antibiotics given his elevated white blood cell count. Likely he will need an EGD. We will order ERCP first, and he may need to have a laparoscopic cholecystectomy in the next few days as well after his pancreatitis resolves. 2. Hypertension. Continue current medications hydralazine p.r.n. 3. High cholesterol: Check lipid panel, continue him on 4. GI prophylaxis - H2 cristi 5. DVT prophylaxis: Heparinsubcutaneous. Dictated By: Quinton Shepard MD /ursula/sapphire /Document#: [id number] MTDD
--- NOTE | 2017-03-17 11:38 | PN ---
Date/Time of Note Date/Time of Note DATE: 03/17/17 TIME: 11:38 Assessment/Plan Lines/Catheters IV Catheter Type (from Nrs): Peripheral IV Assessment/Plan Assessment/Plan [facility] Progress Note Date of Service: 03/17/2017 Place of service: [facility] fifth floor telemetry Today's Assessment & Plan: Overall stable and doing well. Pancreatitis seems better and his lipase is down to 9962 today. Can benefit from laparoscopic cholecystectomy towards the end of this admission. Awaiting MRCP results. No indication for acute surgical intervention. Explained this to patient and his son and answered all their questions to the best of my ability. They both appear to understand and agreed with the plans. With above assessment, I've recommended the following for today: 1. Continue current cares 2. Keep n.p.o. for now. Ice chips and meds okay 3. Awaiting MRCP results 4. Laparoscopic cholecystectomy scheduled for Sunday (tentative) Thank you again for your great care of this very pleasant patient and wonderful family. If there are any questions, please feel free to call me at [phone]. Nature of presenting problem: High severity Please note that, given the multiple number of diagnoses or management options, the moderate amount and/or complexity of data needed to be reviewed, and moderate risk of complications and/or morbidity or mortality, this qualifies as moderate complexity type of decision-making. Disclaimer: Inadvertent spelling and grammatical errors are likely due to EHR/ dictation software use and do not reflect on the quality of delivered patient care. Also, please note that the electronic time recorded on this node does not necessarily reflect the actual time of the visit. Updated clinical summary: A very pleasant 61-year-old gentleman with a few comorbidities being admitted through the emergency department at [facility] for acute pancreatitis, cholelithiasis, and possible early acute cholecystitis. Comorbidities: 1. Acute pancreatitis. 2. Cardiomegaly with scattered areas of atelectasis in the bases of the lungs. 3. Hepatomegaly with small gallstones in the gallbladder. 4. Small hiatal hernia. 5. Atherosclerotic vascular disease. 6. Midline umbilical hernia containing fat measuring 1.4 cm AP by 1.7 cm transverse. 7. Bilateral inguinal hernias containing fat. 8. Right degenerative facet arthropathy is at L5-S1. Subjective: No major events or complaints; no major abd pain and under control with medications; no n/v/d; no sob or cp; - flatus; - BM; - activity Objective: Vitals: See below I's & O's: See below Exam: GENERAL: On exam, the patient was lying in bed and appeared to be comfortable and in no acute distress. ABDOMEN: Soft, mild to nontender and nondistended. There are no peritoneal signs or guarding. SKIN: Skin appears to be pink and feels warm to touch. NEUROLOGIC: Patient is awake, alert, and follows commands appropriately. Labs: See below Exam/Review of Systems Vital Signs Vitals Vital Signs Date Time Temp Pulse Resp B/P Pulse Ox O2 Delivery O2 Flow Rate FiO2 03/17/17 10:54 98.2 65 16 168/60 98 03/16/17 17:02 Room Air Intake and Output 03/16/17 03/16/17 03/17/17 15:00 23:00 07:00 Intake Total 100 ml 850 ml Balance 100 ml 850 ml Results Result Diagram: 03/17/17 0637 03/17/17 0637 ALMAZ HERNÁNDEZ M.D. Mar 17, 2017 11:38
--- NOTE | 2017-03-17 13:18 | PN ---
Date/Time of Note Date/Time of Note DATE: 03/17/17 TIME: 13:15 Assessment/Plan VTE Prophylaxis VTE Prophylaxis Intervention: heparin Lines/Catheters IV Catheter Type (from [facility]): Peripheral IV Assessment/Plan Chief Complaint/Hosp Course ASSESSMENT AND PLAN: The patient is a 61-year-old male coming in with signs of acute cholecystitis and pancreatitis. 1. Abdominal pain: secondary to gallstones with cholecystitis along with pancreatitis. MRCP was essentially negative. Abdominal pain symptoms slowly improving. [place]ase [place] 9962. Still on IV fluids. -Continue NPO, IV fluids, give him antiemetic medicines, -Follow-up TSH, A1c, lipid panel, as well as GI and surgery consults mentation -Awaiting cardiac clearance at the request of surgery team, surgery tentatively scheduled in 3 to -Continue broad spectrum antibiotics given his elevated white blood cell count. Likely he will need 2. Hypertension. Continue current medications hydralazine p.r.n. 3. High cholesterol: Follow-up lipid panel, continue him on statin 4. GI prophylaxis - H2 cristi 5. DVT prophylaxis: Heparin subcutaneous. Problems: Subjective 24 Hr Interval Summary Free Text/Dictation Patient seen by GI and surgery teams. Still n.p.o. Still with some occasional abdominal pain, otherwise no acute events overnight. MRCP was performed. Exam/Review of Systems Vital Signs Vitals Vital Signs Date Time Temp Pulse Resp B/P Pulse Ox O2 Delivery O2 Flow Rate FiO2 03/17/17 12:35 64 03/17/17 12:01 98.5 18 153/67 97 03/16/17 17:02 Room Air Intake and Output 03/16/17 03/16/17 03/17/17 15:00 23:00 07:00 Intake Total 100 ml 850 ml Balance 100 ml 850 ml Exam GENERAL: The patient is lying in bed answering questions appropriately. No acute distress. HEENT: Pupils are equal, round and reactive to light. Extraocular muscles are intact. NECK: Supple. No thyromegaly. LUNGS: Clear to auscultation bilaterally. CARDIOVASCULAR: S1, S2 heard. No murmurs, rubs or gallops. ABDOMEN: Mild tenderness to palpation in right upper quadrant area. No rebound or guarding. Normal bowel sounds. MUSCULOSKELETAL: No lower extremity edema bilaterally. NEUROLOGIC: No focal deficits. Results Result Diagram: 03/17/17 0637 03/17/17 0637 Results 24 hrs Laboratory Tests Test 03/17/17 06:37 03/17/17 06:40 White Blood Count 12.5 #H Red Blood Count 4.95 Hemoglobin 14.0 Hematocrit 42.4 Mean Corpuscular Volume 85.7 Mean Corpuscular Hemoglobin 28.3 L Mean Corpuscular Hemoglobin Concent 33.0 Red Cell Distribution Width 12.7 Platelet Count 191 Mean Platelet Volume 10.2 Neutrophils % 85.2 H Lymphocytes % 8.9 L Monocytes % 5.1 Eosinophils % 0.1 Basophils % 0.3 Nucleated Red Blood Cells % 0.0 Neutrophils # 10.6 H Lymphocytes # 1.1 Monocytes # 0.6 Eosinophils # 0.0 Basophils # 0.0 Nucleated Red Blood Cells # 0.0 Sodium Level 144 Potassium Level 3.7 Chloride Level 100 Carbon Dioxide Level 28 Anion Gap 20 H Blood Urea Nitrogen 17 Creatinine 0.82 Glucose Level 126 Hemoglobin A1c 5.5 Calcium Level 8.8 Phosphorus Level 3.1 Magnesium Level 1.9 Total Bilirubin 0.5 Direct Bilirubin 0.00 Indirect Bilirubin 0.5 Aspartate Amino Transf (AST/SGOT) 40 Alanine Aminotransferase (ALT/SGPT) 31 Alkaline Phosphatase 62 Total Protein 6.5 # Albumin 3.5 Triglycerides Level 38 Cholesterol Level 134 LDL Cholesterol, Calculated 78 HDL Cholesterol 48 Cholesterol/HDL Ratio 2.7 Lipase 9962 H Thyroid Stimulating Hormone (TSH) 0.515 Urine Color YELLOW Urine Clarity CLEAR Urine pH 5.0 Urine Specific [place] 1.020 Urine Ketones NEGATIVE Urine Nitrite NEGATIVE Urine Bilirubin NEGATIVE Urine Urobilinogen NEGATIVE Urine Leukocyte Esterase NEGATIVE Urine Microscopic RBC 1 Urine Microscopic WBC 0 Urine Hemoglobin 1+ H Urine Glucose NEGATIVE Urine Total Protein NEGATIVE Urine Opiates Screen Positive Urine Barbiturates Negative Urine Amphetamines Screen Negative Urine Benzodiazepines Screen Negative Urine Cocaine Screen Negative Urine Cannabinoids Negative Medications Medications Current Medications Ondansetron HCl (Zofran Inj) 4 mg Q6H PRN IV NAUSEA AND/OR VOMITING; Start at 15:00 Acetaminophen (Tylenol Tab) 650 mg Q6H PRN PO PAIN LEVEL 1-3 OR FEVER; Start at 15:00 Acetaminophen/ Hydrocodone Bitart ([place] (5/325)) 1 tab Q6H PRN PO MODERATE PAIN LEVEL 4-6; Start 03/16/17 at 15:00 Acetaminophen/ Hydrocodone Bitart ([place] (5/325)) 2 tab Q6H PRN PO SEVERE PAIN LEVEL 7-10; Start 03/16/17 at 15:00 Morphine Sulfate (morphine) 2 mg Q4H PRN IV SEVERE PAIN LEVEL 7-10; Start 03/16 at 15:00 Docusate Sodium (Colace) 100 mg Q12H PRN PO CONSTIPATION; Start 03/16/17 at 15: 00 Magnesium Hydroxide (Milk Of Mag) 30 ml DAILY PRN PO CONSTIPATION; Start at 15:00 Sodium Biphosphate/ Sodium Phosphate (Fleet Enema) 133 ml DAILY PRN [place] CONSTIPATION; Start 03/16/17 at 15:00 Famotidine (Pepcid Iv) 20 mg Q12 IV Last administered on 03/17/17 08:53; Admin Dose 20 MG; Start 03/16/17 at 16:09 Heparin Sodium (Porcine) 5000 unit 5,000 unit Q12 SC Last administered on 09:01; Admin Dose 5,000 UNIT; Start 03/16/17 at 16:10 Sodium Chloride (1/2 NS) 1,000 ml @ 75 mls/hr [id number] IV Last administered on 03/16/17 19:00; Admin Dose 75 MLS/HR; Start 03/16/17 at 14:37 Lorazepam 0.5 mg 0.5 mg Q6H PRN IV ANXIETY; Start 03/16/17 at 15:00 Piperacillin Sod/ Tazobactam Sod (Zosyn 3.375gm/ 100 ml (Pmx)) 100 ml @ 200 mls /hr Q6 IVPB Last administered on 03/17/17 09:05; Admin Dose 200 MLS/HR; Start 03/16/17 at 18:00 Hydralazine HCl (Apresoline) 10 mg Q6H PRN IV ELEVATED BLOOD PRESSURE; Start at 15:00 Nitroglycerin (Nitroglycerin (Sl Tab) 0.4 Mg) 1 tab Q5M PRN SL ANGINA; Start at 15:00 JEAN HALLMAN Mar 17, 2017 13:18
[2017-03-17] MEDS: ACETAMINOPHEN 325 MG TAB PO PRN (14:17)
--- NOTE | 2017-03-17 16:35 | RADRPT ---
Echocardiogram Report Patient Name: JOSE GUTHRIE Gender: Male Date: 1955 Study Date: 17-Mar-2017 Lumber Planer: ALEXA Location: I Ref. Physician: JEAN HALLMAN Quality: Adequate Procedures: Transthoracic echocardiogram with complete 2D, M-Mode, and doppler examination. Indications: CV clearance. 2D/M Mode Doppler Measurement Value Normal Ranges Measurement Value Normal Ranges AoR Diam MM 3.6 cm AV Peak Hugo 1.6 m/sec ACS MM 2.0 cm AV Peak PG 10.5 mmHg LVIDd 2D 4.5 3.5 - 5.6 cm LVOT Peak Hugo 1.0 m/sec LVIDs 2D 2.9 2.1 - 4.1 cm LVOT Peak PG 4.4 mmHg LVPWd 2D 1.2 0.6 - 1.1 cm MV E Peak Hugo 0.6 m/sec IVSd 2D 1.2 0.6 - 1.1 cm MV A Peak Hugo 0.5 m/sec EDV 2D 91.0 cm3 MV E/A 1.2 ESV 2D 24.8 cm3 MV Decel Time 167 msec LA Dimen 2D 3.7 2.3 - 4.0 cm MV Decel [place] 4 MV E/A 1.2 PV Peak Hugo 0.9 m/sec PV Peak PG 3.0 mmHg Findings Left Ventricle: Normal left ventricular systolic function. Normal left ventricular cavity size. Mild concentric left ventricular hypertrophy. Ejection fraction is visually estimated at 6065 %. Right Ventricle: Normal right ventricular size. Normal right ventricular systolic function. Left Atrium: The left atrium is normal in size. Right Atrium: The right atrium is normal in size. Atrial Septum: Normal atrial septum. Mitral Valve: Normal appearance of the mitral valve. No mitral valve regurgitation is seen. Aortic Valve: Normal appearance of the aortic valve. No significant aortic stenosis or insufficiency. Tricuspid Valve: Normal appearance of the tricuspid valve. No evidence of tricuspid regurgitation. Pulmonic Valve: Normal pulmonic valve appearance. No evidence of pulmonic regurgitation. Pericardium: Normal pericardium with no significant pericardial effusion. Aorta: Normal aortic root. IVC: Normal size and normal respiratory collapse consistent with normal right atrial pressure. Pulmonary Artery: Normal pulmonary artery size. Conclusions 1.The left ventricle is normal in size and systolic function. 2.Estimated left ventricular ejection fraction for 60-65%. 3.Mild concentric left ventricular hypertrophy. Electronically Signed By: Andres Yarbrough 17-Mar-2017 16:34:31 -0700 Patient Name: JOSE GUTHRIE Study Date: 17-Mar-2017 [id number]
--- NOTE | 2017-03-17 16:59 | CONS ---
Date/Time of Note Date/Time of Note DATE: 03/17/17 TIME: 16:52 Assessment/Plan Assessment/Plan Chief Complaint/Hosp Course Assessment: Pre-operative cardiac evaluation - planned for laparoscopic cholecystectomy Gallstone pancreatitis Cholelithiasis with possible cholecystitis Hypertension with hypertensive heart disease Reported history of dyslipidemia - currently with excellent lipid profile off medications Recommendations: -low cardiac risk patient planned for moderate cardiac risk procedure -EKG without acute ischemic changes -echocardiogram showed normal LVEF 60-65%, mild LVH, no significant valvular disease -no evidence of unstable cardiac condition, patient optimized for surgery from cardiac standpoint and no additional cardiac work up at this time -IV hydralazine PRN, start on oral anti-hypertensive when tolerating oral mediations Problems: Consultation Date/Type/Reason Admit Date/Time Type of Consultation: Cardiology Reason for Consultation pre-operative evaluation Hx of Present Illness The patient is a 61 year-old male who presents with abdominal pain and vomiting. Imaging studies and laboratory findings are consistent with gallstone pancreatitis and cholelithiasis with possible cholecystitis. He is planned for laparoscopic cholecystectomy. He reports a history of hypertension and dyslipidemia, though he has been taking any medications. He denies a history of heart disease. He denies any recent chest pain or shortness of breath. 14 point review of systems negative other than per HPI. Past Medical History Medical History: hypertension Past Surgical History Past Surgical Hx: no surgical history Family History Significant Family History: no pertinent family hx (denies family history of heart disease) Social History Alcohol Use: occasionally Smoking Status: Never smoker Drug Use: none Exam/Review of Systems Vital Signs Vitals Vital Signs Date Time Temp Pulse Resp B/P Pulse Ox O2 Delivery O2 Flow Rate FiO2 03/17/17 16:37 88 03/17/17 15:11 18 141/70 98 03/17/17 12:01 98.5 03/16/17 17:02 Room Air Intake and Output 03/16/17 03/16/17 03/17/17 15:00 23:00 07:00 Intake Total 100 ml 850 ml Balance 100 ml 850 ml Exam Constitutional: alert, well developed Psych: nl mood/affect, no complaints Head: atraumatic, normocephalic Eyes: nl conjunctiva, nl lids ENMT: nl external ears & nose, nl nasal mucosa & septum Neck: non-tender, supple, No jvd Respiratory: clear to auscultation, normal air movement Cardiovascular: regular rate and rhythm, No murmurs/extra sounds Gastrointestinal: soft, tender (mild) Extremities: No clubbing, No cyanosis, No edema Neurological: nl mental status, nl speech Skin: nl turgor, No rash or lesions Results Result Diagram: 03/17/17 0637 03/17/17 0637 Results 24 hrs Laboratory Tests Test 03/17/17 06:37 03/17/17 06:40 White Blood Count 12.5 #H Red Blood Count 4.95 Hemoglobin 14.0 Hematocrit 42.4 Mean Corpuscular Volume 85.7 Mean Corpuscular Hemoglobin 28.3 L Mean Corpuscular Hemoglobin Concent 33.0 Red Cell Distribution Width 12.7 Platelet Count 191 Mean Platelet Volume 10.2 Neutrophils % 85.2 H Lymphocytes % 8.9 L Monocytes % 5.1 Eosinophils % 0.1 Basophils % 0.3 Nucleated Red Blood Cells % 0.0 Neutrophils # 10.6 H Lymphocytes # 1.1 Monocytes # 0.6 Eosinophils # 0.0 Basophils # 0.0 Nucleated Red Blood Cells # 0.0 Sodium Level 144 Potassium Level 3.7 Chloride Level 100 Carbon Dioxide Level 28 Anion Gap 20 H Blood Urea Nitrogen 17 Creatinine 0.82 Glucose Level 126 Hemoglobin A1c 5.5 Calcium Level 8.8 Phosphorus Level 3.1 Magnesium Level 1.9 Total Bilirubin 0.5 Direct Bilirubin 0.00 Indirect Bilirubin 0.5 Aspartate Amino Transf (AST/SGOT) 40 Alanine Aminotransferase (ALT/SGPT) 31 Alkaline Phosphatase 62 Total Protein 6.5 # Albumin 3.5 Triglycerides Level 38 Cholesterol Level 134 LDL Cholesterol, Calculated 78 HDL Cholesterol 48 Cholesterol/HDL Ratio 2.7 Lipase 9962 H Thyroid Stimulating Hormone (TSH) 0.515 Urine Color YELLOW Urine Clarity CLEAR Urine pH 5.0 Urine Specific [place] 1.020 Urine Ketones NEGATIVE Urine Nitrite NEGATIVE Urine Bilirubin NEGATIVE Urine Urobilinogen NEGATIVE Urine Leukocyte Esterase NEGATIVE Urine Microscopic RBC 1 Urine Microscopic WBC 0 Urine Hemoglobin 1+ H Urine Glucose NEGATIVE Urine Total Protein NEGATIVE Urine Opiates Screen Positive Urine Barbiturates Negative Urine Amphetamines Screen Negative Urine Benzodiazepines Screen Negative Urine Cocaine Screen Negative Urine Cannabinoids Negative Medications Medications Current Medications Ondansetron HCl (Zofran Inj) 4 mg Q6H PRN IV NAUSEA AND/OR VOMITING; Start at 15:00 Acetaminophen (Tylenol Tab) 650 mg Q6H PRN PO PAIN LEVEL 1-3 OR FEVER Last administered on 03/17/17 14:17; Admin Dose 650 MG; Start 03/16/17 at 15:00 Acetaminophen/ Hydrocodone Bitart ([place] (5/325)) 1 tab Q6H PRN PO MODERATE PAIN LEVEL 4-6; Start 03/16/17 at 15:00 Acetaminophen/ Hydrocodone Bitart ([place] (5/325)) 2 tab Q6H PRN PO SEVERE PAIN LEVEL 7-10; Start 03/16/17 at 15:00 Morphine Sulfate (morphine) 2 mg Q4H PRN IV SEVERE PAIN LEVEL 7-10; Start 03/16 at 15:00 Docusate Sodium (Colace) 100 mg Q12H PRN PO CONSTIPATION; Start 03/16/17 at 15: 00 Magnesium Hydroxide (Milk Of Mag) 30 ml DAILY PRN PO CONSTIPATION; Start at 15:00 Sodium Biphosphate/ Sodium Phosphate (Fleet Enema) 133 ml DAILY PRN [place] CONSTIPATION; Start 03/16/17 at 15:00 Famotidine (Pepcid Iv) 20 mg Q12 IV Last administered on 03/17/17 08:53; Admin Dose 20 MG; Start 03/16/17 at 16:09 Heparin Sodium (Porcine) 5000 unit 5,000 unit Q12 SC Last administered on 09:01; Admin Dose 5,000 UNIT; Start 03/16/17 at 16:10 Sodium Chloride (1/2 NS) 1,000 ml @ 75 mls/hr [id number] IV Last administered on 03/16/17 19:00; Admin Dose 75 MLS/HR; Start 03/16/17 at 14:37 Lorazepam 0.5 mg 0.5 mg Q6H PRN IV ANXIETY; Start 03/16/17 at 15:00 Piperacillin Sod/ Tazobactam Sod (Zosyn 3.375gm/ 100 ml (Pmx)) 100 ml @ 200 mls /hr Q6 IVPB Last administered on 03/17/17 09:05; Admin Dose 200 MLS/HR; Start 03/16/17 at 18:00 Hydralazine HCl (Apresoline) 10 mg Q6H PRN IV ELEVATED BLOOD PRESSURE; Start at 15:00 Nitroglycerin (Nitroglycerin (Sl Tab) 0.4 Mg) 1 tab Q5M PRN SL ANGINA; Start at 15:00 ANGIE DE LEÓN MD Mar 17, 2017 16:59
[2017-03-18] VITALS (12 sets, daily range): BP systolic 150–172; BP diastolic 78–87; PULSE 59–71; RESP 16–20
[2017-03-18] MEDS: PIPER-TAZO 3.375 GM IV (PMX) 100 ML IVPB SCH ×4 (05:00→23:21)
[2017-03-18] MEDS: SOD CHLORIDE 0.45% 1,000 ML IV SCH ×2 (05:00→16:20)
[2017-03-18 07:09] LABS: BASOPHILS % 0.5 % (0.0-2.0); EOSINOPHILS # 0.1 10^3/ul (0.0-0.5); EOSINOPHILS % 1.6 % (0.0-7.0); HEMATOCRIT 40.1 % (42.0-52.0); HEMOGLOBIN 13.5 g/dl (14.0-18.0); LYMPHOCYTES # 0.9 10^3/ul (0.8-2.9); LYMPHOCYTES % 9.6 % (15.0-51.0); MEAN CORPUSCULAR HGB CONC 33.7 g/dl (32.0-37.0); MEAN CORPUSCULAR VOLUME 86.1 fl (82.0-101.0); MEAN PLATELET VOLUME 10.3 fl (7.4-10.4); MONOCYTE # 0.8 10^3/ul (0.3-0.9); MONOCYTES % 8.6 % (0.0-11.0); NEUTROPHILS % 79.2 % (39.0-77.0); PLATELET COUNT 163 10^3/UL (140-415); RED BLOOD COUNT 4.66 10^6/ul (4.70-6.10); RED CELL DISTRIBUTION WIDTH 12.3 % (11.5-14.5); WHITE BLOOD COUNT 8.8 10^3/ul (4.8-10.8)
[2017-03-18 07:33] LABS: AMYLASE 421 U/L (11-123)
[2017-03-18] MEDS: FAMOTIDINE 20 MG INJ IV SCH ×2 (08:39→21:09)
[2017-03-18] MEDS: HEPARIN 5,000 UNIT/0.5 ML VIAL SC SCH ×2 (08:49→21:16)
[2017-03-18 09:19] LABS: CALCIUM 8.5 mg/dl (8.4-10.2); CREATININE 0.77 mg/dl (0.61-1.24); POTASSIUM 3.7 mmol/L (3.5-5.1)
--- NOTE | 2017-03-18 10:28 | PN ---
Date/Time of Note Date/Time of Note DATE: 03/18/17 TIME: 10:26 Assessment/Plan VTE Prophylaxis VTE Prophylaxis Intervention: heparin Lines/Catheters IV Catheter Type (from [facility]): Peripheral IV Assessment/Plan Chief Complaint/Hosp Course ASSESSMENT AND PLAN: The patient is a 61-year-old male coming in with signs of acute cholecystitis and pancreatitis. 1. Abdominal pain: secondary to gallstones with cholecystitis along with pancreatitis. MRCP was essentially negative. Abdominal pain symptoms slowly improving. Lipase results from today are still pending. Still on IV fluids. -Continue NPO, IV fluids, give him antiemetic medicines, -Follow-up GI and surgery consult recommendation -Appreciate cardiology consult, patient tentatively scheduled for surgery on Sunday, in 48 hours per -Continue broad spectrum antibiotics for now, white blood cell count has come down, follow final culture results. If cultures are negative consider stopping antibiotics 2. Hypertension-high normal. Continue current medications hydralazine IV p.r.n. 3. High cholesterol: Follow-up lipid panel, continue him on statin 4. GI prophylaxis - H2 cristi 5. DVT prophylaxis: Heparin subcutaneous. Problems: Subjective 24 Hr Interval Summary Free Text/Dictation Patient still with some mild abdominal pain symptoms, otherwise no acute events overnight. Seen by GI and cardiology teams. Exam/Review of Systems Vital Signs Vitals Vital Signs Date Time Temp Pulse Resp B/P Pulse Ox O2 Delivery O2 Flow Rate FiO2 03/18/17 08:21 60 03/18/17 07:06 99.1 18 150/79 96 03/18/17 03:33 Room Air Intake and Output 03/17/17 03/17/17 03/18/17 15:00 23:00 07:00 Intake Total 0 ml 1025 ml Balance 0 ml 1025 ml Exam GENERAL: The patient is lying in bed, presently no acute distress. HEENT: Pupils are equal, round and reactive to light. Extraocular muscles are intact. NECK: Supple. No thyromegaly. LUNGS: Clear to auscultation bilaterally. CARDIOVASCULAR: S1, S2 heard. No murmurs, rubs or gallops. ABDOMEN: Mild tenderness to palpation in right upper quadrant area. No rebound or guarding. Normal bowel sounds. MUSCULOSKELETAL: No lower extremity edema bilaterally. NEUROLOGIC: No focal deficits. Results Result Diagram: 03/18/17 0503/18/17 0555 Results 24 hrs Laboratory Tests Test 03/18/17 05:00 03/18/17 05:55 Amylase Level 421 H Lipase White Blood Count 8.8 # Red Blood Count 4.66 L Hemoglobin 13.5 L Hematocrit 40.1 L Mean Corpuscular Volume 86.1 Mean Corpuscular Hemoglobin 29.0 Mean Corpuscular Hemoglobin Concent 33.7 Red Cell Distribution Width 12.3 Platelet Count 163 Mean Platelet Volume 10.3 Neutrophils % 79.2 H Lymphocytes % 9.6 L Monocytes % 8.6 Eosinophils % 1.6 Basophils % 0.5 Nucleated Red Blood Cells % 0.0 Neutrophils # 7.0 Lymphocytes # 0.9 Monocytes # 0.8 Eosinophils # 0.1 Basophils # 0.0 Nucleated Red Blood Cells # 0.0 Sodium Level 140 Potassium Level 3.7 Chloride Level 103 Carbon Dioxide Level 24 Anion Gap 17 H Blood Urea Nitrogen 15 Creatinine 0.77 Glucose Level 100 Calcium Level 8.5 Medications Medications Current Medications Ondansetron HCl (Zofran Inj) 4 mg Q6H PRN IV NAUSEA AND/OR VOMITING; Start at 15:00 Acetaminophen (Tylenol Tab) 650 mg Q6H PRN PO PAIN LEVEL 1-3 OR FEVER Last administered on 03/17/17t 14:17; Admin Dose 650 MG; Start 03/16/17 at 15:00 Acetaminophen/ Hydrocodone Bitart ([place] (5/325)) 1 tab Q6H PRN PO MODERATE PAIN LEVEL 4-6; Start 03/16/17 at 15:00 Acetaminophen/ Hydrocodone Bitart ([place] (5/325)) 2 tab Q6H PRN PO SEVERE PAIN LEVEL 7-10; Start 03/16/17 at 15:00 Morphine Sulfate (morphine) 2 mg Q4H PRN IV SEVERE PAIN LEVEL 7-10; Start 03/16 at 15:00 Docusate Sodium (Colace) 100 mg Q12H PRN PO CONSTIPATION; Start 03/16/17 at 15: 00 Magnesium Hydroxide (Milk Of Mag) 30 ml DAILY PRN PO CONSTIPATION; Start at 15:00 Sodium Biphosphate/ Sodium Phosphate (Fleet Enema) 133 ml DAILY PRN [place] CONSTIPATION; Start 03/16/17 at 15:00 Famotidine (Pepcid Iv) 20 mg Q12 IV Last administered on 03/18/17 08:39; Admin Dose 20 MG; Start 03/16/17 at 16:09 Heparin Sodium (Porcine) 5000 unit 5,000 unit Q12 SC Last administered on 08:49; Admin Dose 5,000 UNIT; Start 03/16/17 at 16:10 Sodium Chloride (1/2 NS) 1,000 ml @ 75 mls/hr [id number] IV Last administered on 03/17/17 23:55; Admin Dose 75 MLS/HR; Start 03/16/17 at 14:37 Lorazepam 0.5 mg 0.5 mg Q6H PRN IV ANXIETY; Start 03/16/17 at 15:00 Piperacillin Sod/ Tazobactam Sod (Zosyn 3.375gm/ 100 ml (Pmx)) 100 ml @ 200 mls /hr Q6 IVPB Last administered on 03/18/17 05:00; Admin Dose 200 MLS/HR; Start 03/16/17 at 18:00 Hydralazine HCl (Apresoline) 10 mg Q6H PRN IV ELEVATED BLOOD PRESSURE; Start at 15:00 Nitroglycerin (Nitroglycerin (Sl Tab) 0.4 Mg) 1 tab Q5M PRN SL ANGINA; Start at 15:00 JEAN HALLMAN Mar 18, 2017 10:28
--- NOTE | 2017-03-18 11:35 | PN ---
Date/Time of Note Date/Time of Note DATE: 03/18/17 TIME: 11:33 Assessment/Plan VTE Prophylaxis VTE Prophylaxis Intervention: SCD's Lines/Catheters IV Catheter Type (from Nrs): Peripheral IV Assessment/Plan Assessment/Plan Assessment * Abdominal pain Acute pancreatitis MRCP . Peripancreatic phlegmon adjacent to the pancreatic tail and body with phlegmon in the left greater than right anterior pararenal spaces but no evidence of pancreatic necrosis on this unenhanced exam. . Gallbladder wall thickening and pericholecystic inflammation concerning for cholecystitis, the gallstone is better visualized on the earlier ultrasound. . Normal MRCP without evidence of choledocholithiasis. Cholelithiasis Plan * may have ice chips * fluid resuscitation * Trend lipase and transaminase levels * adequate pain control * Pantoprazole 40 mg BID * case discussed with DR Varma, * further orders will depend on clinical course Subjective 24 Hr Interval Summary Free Text/Dictation * Course reviewed with RN * Patient seen and examined * Lipase improving * Abdominal pain improved Exam/Review of Systems Vital Signs Vitals Vital Signs Date Time Temp Pulse Resp B/P Pulse Ox O2 Delivery O2 Flow Rate FiO2 03/18/17 11:20 99.0 78 16 160/78 97 03/18/17 03:33 Room Air Intake and Output 03/17/17 03/17/17 03/18/17 15:00 23:00 07:00 Intake Total 0 ml 1025 ml Balance 0 ml 1025 ml Exam Constitutional: alert, oriented Head: normocephalic Neck: supple Respiratory: clear to auscultation, normal air movement Cardiovascular: nl pulses, regular rate and rhythm Gastrointestinal: bowel sounds, non-tender, soft Musculoskeletal: nl extremities to inspection, nl gait and stance Extremities: normal pulses Neurological: nl speech, nl strength Skin: nl turgor, No rash or lesions Results Result Diagram: 03/18/17 0555 03/18/17 0555 Results 24 hrs Laboratory Tests Test 03/18/17 05:00 03/18/17 05:55 Amylase Level 421 H Lipase 5143 H White Blood Count 8.8 # Red Blood Count 4.66 L Hemoglobin 13.5 L Hematocrit 40.1 L Mean Corpuscular Volume 86.1 Mean Corpuscular Hemoglobin 29.0 Mean Corpuscular Hemoglobin Concent 33.7 Red Cell Distribution Width 12.3 Platelet Count 163 Mean Platelet Volume 10.3 Neutrophils % 79.2 H Lymphocytes % 9.6 L Monocytes % 8.6 Eosinophils % 1.6 Basophils % 0.5 Nucleated Red Blood Cells % 0.0 Neutrophils # 7.0 Lymphocytes # 0.9 Monocytes # 0.8 Eosinophils # 0.1 Basophils # 0.0 Nucleated Red Blood Cells # 0.0 Sodium Level 140 Potassium Level 3.7 Chloride Level 103 Carbon Dioxide Level 24 Anion Gap 17 H Blood Urea Nitrogen 15 Creatinine 0.77 Glucose Level 100 Calcium Level 8.5 Medications Medications Current Medications Ondansetron HCl (Zofran Inj) 4 mg Q6H PRN IV NAUSEA AND/OR VOMITING; Start at 15:00 Acetaminophen (Tylenol Tab) 650 mg Q6H PRN PO PAIN LEVEL 1-3 OR FEVER Last administered on 03/17/17 14:17; Admin Dose 650 MG; Start 03/16/17 at 15:00 Acetaminophen/ Hydrocodone Bitart ([place] (5/325)) 1 tab Q6H PRN PO MODERATE PAIN LEVEL 4-6; Start 03/16/17 at 15:00 Acetaminophen/ Hydrocodone Bitart ([place] (5/325)) 2 tab Q6H PRN PO SEVERE PAIN LEVEL 7-10; Start 03/16/17 at 15:00 Morphine Sulfate (morphine) 2 mg Q4H PRN IV SEVERE PAIN LEVEL 7-10; Start 03/16 at 15:00 Docusate Sodium (Colace) 100 mg Q12H PRN PO CONSTIPATION; Start 03/16/17 at 15: 00 Magnesium Hydroxide (Milk Of Mag) 30 ml DAILY PRN PO CONSTIPATION; Start at 15:00 Sodium Biphosphate/ Sodium Phosphate (Fleet Enema) 133 ml DAILY PRN [place] CONSTIPATION; Start 03/16/17 at 15:00 Famotidine (Pepcid Iv) 20 mg Q12 IV Last administered on 03/18/17 08:39; Admin Dose 20 MG; Start 03/16/17 at 16:09 Heparin Sodium (Porcine) 5000 unit 5,000 unit Q12 SC Last administered on 08:49; Admin Dose 5,000 UNIT; Start 03/16/17 at 16:10 Sodium Chloride (1/2 NS) 1,000 ml @ 75 mls/hr [id number] IV Last administered on 03/17/17 23:55; Admin Dose 75 MLS/HR; Start 03/16/17 at 14:37 Lorazepam 0.5 mg 0.5 mg Q6H PRN IV ANXIETY; Start 03/16/17 at 15:00 Piperacillin Sod/ Tazobactam Sod (Zosyn 3.375gm/ 100 ml (Pmx)) 100 ml @ 200 mls /hr Q6 IVPB Last administered on 03/18/17 05:00; Admin Dose 200 MLS/HR; Start 03/16/17 at 18:00 Hydralazine HCl (Apresoline) 10 mg Q6H PRN IV ELEVATED BLOOD PRESSURE; Start at 15:00 Nitroglycerin (Nitroglycerin (Sl Tab) 0.4 Mg) 1 tab Q5M PRN SL ANGINA; Start at 15:00 DEJAH DIAZ NP Mar 18, 2017 11:35
--- NOTE | 2017-03-18 12:03 | PN ---
Date/Time of Note Date/Time of Note DATE: 03/18/17 TIME: 11:59 Assessment/Plan Lines/Catheters IV Catheter Type (from Nrs): Peripheral IV Assessment/Plan Assessment/Plan [facility] Progress Note Date of Service: 03/18/2017 Place of service: [facility] fifth floor telemetry Today's Assessment & Plan: Overall stable and doing well. Pancreatitis appears to be improving and continued improvement in his enzymes. MRCP negative for choledocholithiasis, with some concern for cholecystitis. Cardiac workup ongoing. Can benefit from laparoscopic cholecystectomy towards the end of this admission. Awaiting MRCP results. No indication for acute surgical intervention. Explained this to patient and answered all their questions to the best of my ability. Patient appeared to understand and agreed with the plans. With above assessment, I've recommended the following for today: 1. Continue current cares 2. Start clear liquid diet 3. Labs in a.m. 4. Laparoscopic cholecystectomy scheduled for Sunday (tentative) Thank you again for your great care of this very pleasant patient and wonderful family. If there are any questions, please feel free to call me at [phone]. Nature of presenting problem: High severity Please note that, given the multiple number of diagnoses or management options, the moderate amount and/or complexity of data needed to be reviewed, and moderate risk of complications and/or morbidity or mortality, this qualifies as moderate complexity type of decision-making. Disclaimer: Inadvertent spelling and grammatical errors are likely due to EHR/ dictation software use and do not reflect on the quality of delivered patient care. Also, please note that the electronic time recorded on this node does not necessarily reflect the actual time of the visit. Updated clinical summary: A very pleasant 61-year-old gentleman with a few comorbidities being admitted through the emergency department at [facility] for acute pancreatitis, cholelithiasis, and possible early acute cholecystitis. Comorbidities: 1. Acute pancreatitis. 2. Cardiomegaly with scattered areas of atelectasis in the bases of the lungs. 3. Hepatomegaly with small gallstones in the gallbladder. 4. Small hiatal hernia. 5. Atherosclerotic vascular disease. 6. Midline umbilical hernia containing fat measuring 1.4 cm AP by 1.7 cm transverse. 7. Bilateral inguinal hernias containing fat. 8. Right degenerative facet arthropathy is at L5-S1. Subjective: No major events or complaints; no major abd pain and under control with medications; no n/v/d; no sob or cp; - flatus; - BM; - activity Objective: Vitals: See below I's & O's: See below Exam: GENERAL: On exam, the patient was lying in bed and appeared to be comfortable and in no acute distress. ABDOMEN: Soft, mild to nontender and nondistended. There are no peritoneal signs or guarding. SKIN: Skin appears to be pink and feels warm to touch. NEUROLOGIC: Patient is awake, alert, and follows commands appropriately. Labs: See below Exam/Review of Systems Vital Signs Vitals Vital Signs Date Time Temp Pulse Resp B/P Pulse Ox O2 Delivery O2 Flow Rate FiO2 03/18/17 11:20 99.0 78 16 160/78 97 03/18/17 03:33 Room Air Intake and Output 03/17/17 03/17/17 03/18/17 15:00 23:00 07:00 Intake Total 0 ml 1025 ml Balance 0 ml 1025 ml Results Result Diagram: 03/18/17 0555 03/18/17 0555 ALMAZ HERNÁNDEZ M.D. Mar 18, 2017 12:03
[2017-03-19] VITALS (13 sets, daily range): BP systolic 143–178; BP diastolic 66–87; PULSE 58–72; RESP 17–20
[2017-03-19] MEDS: ACETAMINOPHEN 325 MG TAB PO PRN (04:31)
[2017-03-19] MEDS: PIPER-TAZO 3.375 GM IV (PMX) 100 ML IVPB SCH ×3 (05:28→18:39)
[2017-03-19 08:15] LABS: BASOPHIL # 0.1 10^3/ul (0.0-0.1); BASOPHILS % 0.6 % (0.0-2.0); EOSINOPHILS # 0.1 10^3/ul (0.0-0.5); EOSINOPHILS % 1.7 % (0.0-7.0); HEMATOCRIT 44.9 % (42.0-52.0); LYMPHOCYTES # 1.1 10^3/ul (0.8-2.9); LYMPHOCYTES % 12.9 % (15.0-51.0); MEAN CORPUSCULAR HEMOGLOBIN 28.2 pg (29.0-33.0); MEAN CORPUSCULAR HGB CONC 33.4 g/dl (32.0-37.0); MEAN CORPUSCULAR VOLUME 84.6 fl (82.0-101.0); MEAN PLATELET VOLUME 10.3 fl (7.4-10.4); MONOCYTE # 0.8 10^3/ul (0.3-0.9); MONOCYTES % 9.2 % (0.0-11.0); NEUTROPHIL # 6.2 10^3/ul (1.6-7.5); NEUTROPHILS % 75.1 % (39.0-77.0); PLATELET COUNT 225 10^3/UL (140-415); RED BLOOD COUNT 5.31 10^6/ul (4.70-6.10); RED CELL DISTRIBUTION WIDTH 11.9 % (11.5-14.5); WHITE BLOOD COUNT 8.3 10^3/ul (4.8-10.8)
[2017-03-19 08:38] LABS: CALCIUM 9.3 mg/dl (8.4-10.2); CREATININE 0.82 mg/dl (0.61-1.24); POTASSIUM 3.8 mmol/L (3.5-5.1)
[2017-03-19] MEDS: FAMOTIDINE 20 MG INJ IV SCH (10:08)
[2017-03-19] MEDS: SOD CHLORIDE 0.45% 1,000 ML IV SCH ×2 (10:08→22:40)
[2017-03-19] MEDS: HEPARIN 5,000 UNIT/0.5 ML VIAL SC SCH ×2 (10:16→21:00)
--- NOTE | 2017-03-19 15:58 | PN ---
Date/Time of Note Date/Time of Note DATE: 03/19/17 TIME: 15:53 Assessment/Plan Lines/Catheters IV Catheter Type (from Nrs): Saline Lock [place] in Place (from Nrs): No Assessment/Plan Assessment/Plan [facility] Progress Note Date of Service: 03/19/2017 Place of service: [facility] fifth floor telemetry Today's Assessment & Plan: Overall stable and doing well. Pancreatitis continues to improve. Cardiac workup done and cleared (much appreciate the input). On schedule for laparoscopic cholecystectomy tomorrow am. Explained this to patient and answered all his questions to the best of my ability. Patient appeared to understand and agreed with the plans. With above assessment, I've recommended the following for today: 1. Continue current cares 2. Regular low fat diet 3. Labs in a.m. 4. NPO after midnight 5. Laparoscopic cholecystectomy scheduled for tomorrow am Thank you again for your great care of this very pleasant patient and wonderful family. If there are any questions, please feel free to call me at [phone]. Nature of presenting problem: High severity Please note that, given the multiple number of diagnoses or management options, the moderate amount and/or complexity of data needed to be reviewed, and moderate risk of complications and/or morbidity or mortality, this qualifies as moderate complexity type of decision-making. Disclaimer: Inadvertent spelling and grammatical errors are likely due to EHR/ dictation software use and do not reflect on the quality of delivered patient care. Also, please note that the electronic time recorded on this node does not necessarily reflect the actual time of the visit. Updated clinical summary: A very pleasant 61-year-old gentleman with a few comorbidities being admitted through the emergency department at [facility] for acute pancreatitis, cholelithiasis, and possible early acute cholecystitis. Comorbidities: 1. Acute pancreatitis. 2. Cardiomegaly with scattered areas of atelectasis in the bases of the lungs. 3. Hepatomegaly with small gallstones in the gallbladder. 4. Small hiatal hernia. 5. Atherosclerotic vascular disease. 6. Midline umbilical hernia containing fat measuring 1.4 cm AP by 1.7 cm transverse. 7. Bilateral inguinal hernias containing fat. 8. Right degenerative facet arthropathy is at L5-S1. Subjective: No major events or complaints; no major abd pain and under control with medications; no n/v/d; no sob or cp; + flatus; - BM; - activity Objective: Vitals: See below I's & O's: See below Exam: GENERAL: On exam, the patient was lying in bed and appeared to be comfortable and in no acute distress. ABDOMEN: Soft, mild to nontender and nondistended. There are no peritoneal signs or guarding. SKIN: Skin appears to be pink and feels warm to touch. NEUROLOGIC: Patient is awake, alert, and follows commands appropriately. Labs: See below Exam/Review of Systems Vital Signs Vitals Vital Signs Date Time Temp Pulse Resp B/P Pulse Ox O2 Delivery O2 Flow Rate FiO2 03/19/17 13:43 70 20 151/70 97 Room Air 70 03/19/17 12:13 97.8 Intake and Output 03/18/17 03/18/17 03/19/17 15:00 23:00 07:00 Intake Total 0 ml 1045 ml Balance 0 ml 1045 ml Results Result Diagram: 03/19/17 0722 03/19/17 0722 ALMAZ HERNÁNDEZ M.D. Mar 19, 2017 15:58
--- NOTE | 2017-03-19 16:34 | PN ---
Date/Time of Note Date/Time of Note DATE: 03/19/17 TIME: 16:29 Assessment/Plan VTE Prophylaxis VTE Prophylaxis Intervention: SCD's Lines/Catheters IV Catheter Type (from Nrsg): Saline Lock Urinary Cath still in place: No Assessment/Plan Assessment/Plan 61-year-old male with pancreatitis, suspect gallstone etiology and cholecystitis 1. Abdominal pain: suspect gallstone pancreatitis v pancreatitis from other etio and cholecystitis -slated for cholecystectomy tomorrow -cont pain control -cont abx pending surgical intervention FEN as per gen surg DVT prophx Subjective 24 Hr Interval Summary Free Text/Dictation Pt still with R sided abd pain Exam/Review of Systems Vital Signs Vitals Vital Signs Date Time Temp Pulse Resp B/P Pulse Ox O2 Delivery O2 Flow Rate FiO2 03/19/17 13:43 70 20 151/70 97 Room Air 70 03/19/17 12:13 97.8 Intake and Output 03/18/17 03/18/17 03/19/17 15:00 23:00 07:00 Intake Total 0 ml 1045 ml Balance 0 ml 1045 ml Exam nad no mrg lungs clear abd soft no rashes Results Result Diagram: 03/19/1722 03/19/17 0722 Results 24 hrs Laboratory Tests Test 03/19/17 07:22 White Blood Count 8.3 Red Blood Count 5.31 Hemoglobin 15.0 Hematocrit 44.9 Mean Corpuscular Volume 84.6 Mean Corpuscular Hemoglobin 28.2 L Mean Corpuscular Hemoglobin Concent 33.4 Red Cell Distribution Width 11.9 Platelet Count 225 # Mean Platelet Volume 10.3 Neutrophils % 75.1 Lymphocytes % 12.9 L Monocytes % 9.2 Eosinophils % 1.7 Basophils % 0.6 Nucleated Red Blood Cells % 0.0 Neutrophils # 6.2 Lymphocytes # 1.1 Monocytes # 0.8 Eosinophils # 0.1 Basophils # 0.1 Nucleated Red Blood Cells # 0.0 Sodium Level 142 Potassium Level 3.8 Chloride Level 99 Carbon Dioxide Level 25 Anion Gap 22 H Blood Urea Nitrogen 11 Creatinine 0.82 Glucose Level 90 Calcium Level 9.3 Lipase 1215 H Medications Medications Current Medications Ondansetron HCl (Zofran Inj) 4 mg Q6H PRN IV NAUSEA AND/OR VOMITING; Start at 15:00 Acetaminophen (Tylenol Tab) 650 mg Q6H PRN PO PAIN LEVEL 1-3 OR FEVER Last administered on 03/19/17 04:31; Admin Dose 650 MG; Start 03/16/17 at 15:00 Acetaminophen/ Hydrocodone Bitart ([place] (5/325)) 1 tab Q6H PRN PO MODERATE PAIN LEVEL 4-6; Start 03/16/17 at 15:00 Acetaminophen/ Hydrocodone Bitart ([place] (5/325)) 2 tab Q6H PRN PO SEVERE PAIN LEVEL 7-10; Start 03/16/17 at 15:00 Morphine Sulfate (morphine) 2 mg Q4H PRN IV SEVERE PAIN LEVEL 7-10; Start 03/16 at 15:00 Docusate Sodium (Colace) 100 mg Q12H PRN PO CONSTIPATION; Start 03/16/17 at 15: 00 Magnesium Hydroxide (Milk Of Mag) 30 ml DAILY PRN PO CONSTIPATION; Start at 15:00 Sodium Biphosphate/ Sodium Phosphate (Fleet Enema) 133 ml DAILY PRN [place] CONSTIPATION; Start 03/16/17 at 15:00 Famotidine (Pepcid Iv) 20 mg Q12 IV Last administered on 03/19/17 10:08; Admin Dose 20 MG; Start 03/16/17 at 16:09 Heparin Sodium (Porcine) 5000 unit 5,000 unit Q12 SC Last administered on 10:16; Admin Dose 5,000 UNIT; Start 03/16/17 at 16:10 Sodium Chloride (1/2 NS) 1,000 ml @ 75 mls/hr [id number] IV Last administered on 03/19/17 10:08; Admin Dose 75 MLS/HR; Start 03/16/17 at 14:37 Lorazepam 0.5 mg 0.5 mg Q6H PRN IV ANXIETY; Start 03/16/17 at 15:00 Piperacillin Sod/ Tazobactam Sod (Zosyn 3.375gm/ 100 ml (Pmx)) 100 ml @ 200 mls /hr Q6 IVPB Last administered on 03/19/17 12:10; Admin Dose 200 MLS/HR; Start 03/16/17 at 18:00 Hydralazine HCl (Apresoline) 10 mg Q6H PRN IV ELEVATED BLOOD PRESSURE Last administered on 7/24/17at 12:51; Admin Dose 10 MG; Start 03/16/17 at 15:00 Nitroglycerin (Nitroglycerin (Sl Tab) 0.4 Mg) 1 tab Q5M PRN SL ANGINA; Start at 15:00 CARON MOURA MD Mar 19, 2017 16:34
[2017-03-20] VITALS (22 sets, daily range): BP systolic 140–192; BP diastolic 61–90; PULSE 56–71; RESP 15–23
[2017-03-20] MEDS: SOD CHLORIDE 0.45% 1,000 ML IV SCH (04:53)
[2017-03-20] MEDS: hydrALAzine 20 MG INJ IV PRN ×2 (05:22→20:11)
[2017-03-20] MEDS: PIPER-TAZO 3.375 GM IV (PMX) 100 ML IVPB SCH ×2 (05:22)
--- NOTE | 2017-03-20 07:23 | RADRPT ---
PROCEDURE: XR Chest. CLINICAL INDICATION: PRE OP EVAL TECHNIQUE: Single frontal view of the chest was obtained COMPARISON: None FINDINGS: The heart and mediastinum are within normal limits. There are atherosclerotic calcifications of the aortic arch. The lungs volumes are diminished. There is no pleural effusion or pneumothorax. There are degenerative changes of the visualized spine. IMPRESSION: No acute disease. RPTAT: PP Physician Jessica Date Time Electronically viewed and signed by Lacho Phipps Physician on 03/20/2017 07:22 /
--- NOTE | 2017-03-20 07:37 | HPN ---
Date/Time of Note Date/Time of Note DATE: 03/20/17 TIME: 07:33 Interval H&P Admission Note Pt. seen H&P reviewed: No system changes Pt. seen H&P reviewed. No system changes (I attest that I have seen and examined the patient and reviewed the operation in detail, as well as its risks , benefits and alternatives of the operation). I attest that I have seen and examined the patient and reviewed in detail the operation, and its associated risks, benefits and alternative. I have answered all the patient's questions to the best of my ability and the patient wishes to proceed. Please refer to rest of electronic medical record for additional updates. ALMAZ HERNÁNDEZ M.D. Mar 20, 2017 07:36
[2017-03-20 07:57] LABS: BASOPHILS % 0.5 % (0.0-2.0); EOSINOPHILS # 0.1 10^3/ul (0.0-0.5); EOSINOPHILS % 1.4 % (0.0-7.0); HEMATOCRIT 43.5 % (42.0-52.0); HEMOGLOBIN 14.9 g/dl (14.0-18.0); LYMPHOCYTES # 1.2 10^3/ul (0.8-2.9); LYMPHOCYTES % 13.9 % (15.0-51.0); MEAN CORPUSCULAR HEMOGLOBIN 28.2 pg (29.0-33.0); MEAN CORPUSCULAR HGB CONC 34.3 g/dl (32.0-37.0); MEAN CORPUSCULAR VOLUME 82.2 fl (82.0-101.0); MEAN PLATELET VOLUME 9.7 fl (7.4-10.4); MONOCYTE # 1.1 10^3/ul (0.3-0.9); MONOCYTES % 12.4 % (0.0-11.0); NEUTROPHIL # 6.2 10^3/ul (1.6-7.5); PLATELET COUNT 242 10^3/UL (140-415); RED BLOOD COUNT 5.29 10^6/ul (4.70-6.10); RED CELL DISTRIBUTION WIDTH 11.9 % (11.5-14.5); WHITE BLOOD COUNT 8.7 10^3/ul (4.8-10.8)
[2017-03-20] MEDS ORDERED: BUPIVACAINE 0.25%/EPI (SDV) 30 ML INJ INJ ONE (08:16)
[2017-03-20] MEDS ORDERED: PROCHLORPERAZINE 10 MG INJ IV PRN (08:30)
[2017-03-20] MEDS ORDERED: MEPERIDINE 25 MG INJ IV PRN (08:30)
[2017-03-20] MEDS ORDERED: OXYCODONE/ACETAMINOPHEN (5/325) TAB PO PRN ×2 (08:30)
[2017-03-20] MEDS ORDERED: ONDANSETRON 4 MG INJ IV PRN (08:30)
[2017-03-20] MEDS ORDERED: DIPHENHYDRAMINE 50 MG INJ IV PRN (08:30)
[2017-03-20] MEDS ORDERED: HYDROmorphONE (0.2 MG/ML) 10ML SYG IV PRN ×2 (08:30)
[2017-03-20] MEDS ORDERED: FENTAnyl 50 MCG/ML VIAL IV PRN (08:30)
[2017-03-20 08:32] LABS: ALBUMIN 3.9 g/dl (3.3-4.9); ALBUMIN/GLOBULIN RATIO 1.08; BILIRUBIN,INDIRECT 0.3 mg/dl (0-1.1); BILIRUBIN,TOTAL 0.3 mg/dl (0.2-1.3); CALCIUM 9.4 mg/dl (8.4-10.2); CREATININE 0.76 mg/dl (0.61-1.24); PHOSPHORUS 3.1 mg/dl (2.5-4.9); POTASSIUM 3.5 mmol/L (3.5-5.1); TOTAL PROTEIN 7.5 g/dl (6.1-8.1)
[2017-03-20] MEDS: HEPARIN 5,000 UNIT/0.5 ML VIAL SC SCH ×2 (08:40→20:15)
[2017-03-20] MEDS ORDERED: HYDROmorphONE 1 MG/ML SYG IV PRN ×2 (09:30)
[2017-03-20] MEDS ORDERED: BISACODYL 10 MG SUPP PR PRN (09:30)
[2017-03-20] MEDS ORDERED: DOCUSATE SODIUM 100 MG CAP PO PRN (09:30)
[2017-03-20] MEDS ORDERED: NA PHOSPHATE/BIPHOS 133 ML ENEMA PR PRN (09:30)
[2017-03-20] MEDS ORDERED: HYDROCODONE/APAP (5/325) TAB PO PRN ×2 (09:30)
[2017-03-20] MEDS: D5W-0.45 NACL + KCL 20 MEQ 1,000 ML IV SCH ×3 (10:34→21:49)
--- NOTE | 2017-03-20 12:58 | CONS ---
Date/Time of Note Date/Time of Note DATE: 03/20/17 TIME: 12:56 Assessment/Plan Assessment/Plan Chief Complaint/Hosp Course Pre-operative cardiac evaluation - s/p successful lap chevy without issues Pancreatitis: resolved Cholelithiasis with cholecystitis: s/p lap chevy Hypertension with hypertensive heart disease Reported history of dyslipidemia - currently with excellent lipid profile off medications -start BP meds when ok for PO -will follow PRN Problems: Consultation Date/Type/Reason Admit Date/Time Mar 16, 2017 at 13:40 Initial Consult Date 03/16/17 Type of Consultation: Cardiology Referring Provider: JEAN HALLMAN 24 HR Interval Summary Free Text/Dictation Had lap chevy today without issues. No complaints. Doing well. Exam/Review of Systems Vital Signs Vitals Vital Signs Date Time Temp Pulse Resp B/P Pulse Ox O2 Delivery O2 Flow Rate FiO2 03/20/17 12:36 97.9 71 20 143/73 97 Room Air Intake and Output 03/19/17 03/19/17 03/20/17 15:00 23:00 07:00 Intake Total 100 ml 1000 ml Balance 100 ml 1000 ml Exam Constitutional: alert, oriented Psych: no complaints Head: atraumatic, normocephalic Neck: No jvd Respiratory: clear to auscultation Cardiovascular: regular rate and rhythm, No edema, No systolic murmur Gastrointestinal: non-tender, other (bandages at lap insertion sites ), soft Neurological: nl mental status, nl speech Results Result Diagram: 03/20/17 0655 03/20/17 0655 Results 24 hrs Laboratory Tests Test 03/20/17 06:55 White Blood Count 8.7 Red Blood Count 5.29 Hemoglobin 14.9 Hematocrit 43.5 Mean Corpuscular Volume 82.2 Mean Corpuscular Hemoglobin 28.2 L Mean Corpuscular Hemoglobin Concent 34.3 Red Cell Distribution Width 11.9 Platelet Count 242 Mean Platelet Volume 9.7 Neutrophils % 71.0 Lymphocytes % 13.9 L Monocytes % 12.4 H Eosinophils % 1.4 Basophils % 0.5 Nucleated Red Blood Cells % 0.0 Neutrophils # 6.2 Lymphocytes # 1.2 Monocytes # 1.1 H Eosinophils # 0.1 Basophils # 0.0 Nucleated Red Blood Cells # 0.0 Sodium Level 142 Potassium Level 3.5 Chloride Level 102 Carbon Dioxide Level 24 Anion Gap 20 H Blood Urea Nitrogen 11 Creatinine 0.76 Glucose Level 118 Calcium Level 9.4 Phosphorus Level 3.1 Magnesium Level 2.0 Total Bilirubin 0.3 Direct Bilirubin 0.00 Indirect Bilirubin 0.3 Aspartate Amino Transf (AST/SGOT) 24 Alanine Aminotransferase (ALT/SGPT) 34 Alkaline Phosphatase 61 Total Protein 7.5 Albumin 3.9 Globulin 3.60 H Albumin/Globulin Ratio 1.08 Amylase Level 121 Lipase 966 H Medications Medications Current Medications Ondansetron HCl (Zofran Inj) 4 mg Q6H PRN IV NAUSEA AND/OR VOMITING; Start at 15:00 Acetaminophen (Tylenol Tab) 650 mg Q6H PRN PO PAIN LEVEL 1-3 OR FEVER Last administered on 03/19/17 04:31; Admin Dose 650 MG; Start 03/16/17 at 15:00 Docusate Sodium (Colace) 100 mg Q12H PRN PO CONSTIPATION; Start 03/16/17 at 15: 00 Magnesium Hydroxide (Milk Of Mag) 30 ml DAILY PRN PO CONSTIPATION; Start at 15:00 Sodium Biphosphate/ Sodium Phosphate (Fleet Enema) 133 ml DAILY PRN [place] CONSTIPATION; Start 03/16/17 at 15:00 Heparin Sodium (Porcine) (Heparin (5000 Units/0.5 ml)) 5,000 unit Q12 SC Last administered on 03/19/17 21:00; Admin Dose 5,000 UNIT; Start 03/16/17 at 16:10 Lorazepam (Ativan) 0.5 mg Q6H PRN IV ANXIETY; Start 03/16/17 at 15:00 Nitroglycerin (Nitroglycerin (Sl Tab) 0.4 Mg) 1 tab Q5M PRN SL ANGINA; Start at 15:00 Hydralazine HCl 10 mg 10 mg Q6H PRN IV ELEVATED BLOOD PRESSURE Last administered on 03/20/17 05:22; Admin Dose 10 MG; Start 03/20/17 at 05:30 Potassium Chloride/Dextrose/ Sod Cl (D5-1/2ns + KCl 20 Meq) 1,000 ml @ 100 mls/ hr Q10H IV Last administered on 03/20/17 10:34; Admin Dose 100 MLS/HR; Start 03/20/17 at 09:19 Acetaminophen/ Hydrocodone Bitart ([place] (5/325)) 1 tab Q4H PRN PO PAIN LEVEL 4 -7; Start 03/20/17 at 09:30 Acetaminophen/ Hydrocodone Bitart ([place] (5/325)) 2 tab Q4H PRN PO PAIN LEVEL 7 -10; Start 03/20/17 at 09:30 Hydromorphone HCl (Dilaudid) 0.5 mg Q2H PRN IV PAIN; Start 03/20/17 at 09:30 Hydromorphone HCl (Dilaudid) 1 mg Q2H PRN IV PAIN Last administered on t 10:33; Admin Dose 1 MG; Start 03/20/17 at 09:30 Docusate Sodium (Colace) 100 mg BID PRN PO CONSTIPATION; Start 03/20/17 at 09: 30 Bisacodyl (Dulcolax Supp) 10 mg BID PRN [place] CONSTIPATION; Start 03/20/17 at 09: 30 Sodium Biphosphate/ Sodium Phosphate (Fleet Enema) 133 ml BID PRN [place] CONSTIPATION; Start 03/20/17 at 09:30 Famotidine (Pepcid Iv) 20 mg DAILY IV ; Start 03/21/17 at 09:00 Enoxaparin Sodium (Lovenox) 40 mg DAILY SC ; Start 03/21/17 at 09:00 NEYDA WHANG Mar 20, 2017 12:58
--- NOTE | 2017-03-20 14:20 | PN ---
Date/Time of Note Date/Time of Note DATE: 03/20/17 TIME: 14:16 Assessment/Plan VTE Prophylaxis VTE Prophylaxis Intervention: SCD's Lines/Catheters IV [facility]from [facility] Saline Lock Urinary Cath still in place: No Assessment/Plan Assessment/Plan Assessment * Abdominal pain Acute pancreatitis MRCP . Peripancreatic phlegmon adjacent to the pancreatic tail and body with phlegmon in the left greater than right anterior pararenal spaces but no evidence of pancreatic necrosis on this unenhanced exam. . Gallbladder wall thickening and pericholecystic inflammation concerning for cholecystitis, the gallstone is better visualized on the earlier ultrasound. . Normal MRCP without evidence of choledocholithiasis. 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 Exam/Review of Systems Vital Signs Vitals Vital Signs Date Time Temp Pulse Resp B/P Pulse Ox O2 Delivery O2 Flow Rate FiO2 03/20/17 13:02 62 03/20/17 12:36 97.9 20 143/73 97 Room Air Intake and Output 03/19/17 03/19/17 03/20/17 15:00 23:00 07:00 Intake Total 100 ml 1000 ml Balance 100 ml 1000 ml Exam Constitutional: alert, oriented Head: atraumatic, normocephalic Neck: non-tender, supple Respiratory: clear to auscultation, normal air movement Cardiovascular: nl pulses, regular rate and rhythm Gastrointestinal: bowel sounds, non-tender, soft Musculoskeletal: nl extremities to inspection, nl gait and stance Extremities: normal pulses Neurological: nl speech, nl strength Skin: nl turgor, No rash or lesions Lymph: nl lymph nodes Results Result Diagram: 03/20/17 0655 03/20/17 0655 Results 24 hrs Laboratory Tests Test 03/20/17 06:55 White Blood Count 8.7 Red Blood Count 5.29 Hemoglobin 14.9 Hematocrit 43.5 Mean Corpuscular Volume 82.2 Mean Corpuscular Hemoglobin 28.2 L Mean Corpuscular Hemoglobin Concent 34.3 Red Cell Distribution Width 11.9 Platelet Count 242 Mean Platelet Volume 9.7 Neutrophils % 71.0 Lymphocytes % 13.9 L Monocytes % 12.4 H Eosinophils % 1.4 Basophils % 0.5 Nucleated Red Blood Cells % 0.0 Neutrophils # 6.2 Lymphocytes # 1.2 Monocytes # 1.1 H Eosinophils # 0.1 Basophils # 0.0 Nucleated Red Blood Cells # 0.0 Sodium Level 142 Potassium Level 3.5 Chloride Level 102 Carbon Dioxide Level 24 Anion Gap 20 H Blood Urea Nitrogen 11 Creatinine 0.76 Glucose Level 118 Calcium Level 9.4 Phosphorus Level 3.1 Magnesium Level 2.0 Total Bilirubin 0.3 Direct Bilirubin 0.00 Indirect Bilirubin 0.3 Aspartate Amino Transf (AST/SGOT) 24 Alanine Aminotransferase (ALT/SGPT) 34 Alkaline Phosphatase 61 Total Protein 7.5 Albumin 3.9 Globulin 3.60 H Albumin/Globulin Ratio 1.08 Amylase Level 121 Lipase 966 H Medications Medications Current Medications Ondansetron HCl (Zofran Inj) 4 mg Q6H PRN IV NAUSEA AND/OR VOMITING; Start at 15:00 Acetaminophen (Tylenol Tab) 650 mg Q6H PRN PO PAIN LEVEL 1-3 OR FEVER Last administered on 03/19/17 04:31; Admin Dose 650 MG; Start 03/16/17 at 15:00 Docusate Sodium (Colace) 100 mg Q12H PRN PO CONSTIPATION; Start 03/16/17 at 15: 00 Magnesium Hydroxide (Milk Of Mag) 30 ml DAILY PRN PO CONSTIPATION; Start at 15:00 Sodium Biphosphate/ Sodium Phosphate (Fleet Enema) 133 ml DAILY PRN [place] CONSTIPATION; Start 03/16/17 at 15:00 Heparin Sodium (Porcine) (Heparin (5000 Units/0.5 ml)) 5,000 unit Q12 SC Last administered on 03/19/17 21:00; Admin Dose 5,000 UNIT; Start 03/16/17 at 16:10 Lorazepam (Ativan) 0.5 mg Q6H PRN IV ANXIETY; Start 03/16/17 at 15:00 Nitroglycerin (Nitroglycerin (Sl Tab) 0.4 Mg) 1 tab Q5M PRN SL ANGINA; Start at 15:00 Hydralazine HCl 10 mg 10 mg Q6H PRN IV ELEVATED BLOOD PRESSURE Last administered on 03/20/17 05:22; Admin Dose 10 MG; Start 03/20/17 at 05:30 Potassium Chloride/Dextrose/ Sod Cl (D5-1/2ns + KCl 20 Meq) 1,000 ml @ 100 mls/ hr Q10H IV Last administered on 03/20/17 10:34; Admin Dose 100 MLS/HR; Start 03/20/17 at 09:19 Acetaminophen/ Hydrocodone Bitart ([place] (5/325)) 1 tab Q4H PRN PO PAIN LEVEL 4 -7; Start 03/20/17 at 09:30 Acetaminophen/ Hydrocodone Bitart ([place] (5/325)) 2 tab Q4H PRN PO PAIN LEVEL 7 -10; Start 03/20/17 at 09:30 Hydromorphone HCl (Dilaudid) 0.5 mg Q2H PRN IV PAIN; Start 03/20/17 at 09:30 Hydromorphone HCl (Dilaudid) 1 mg Q2H PRN IV PAIN Last administered on 10:33; Admin Dose 1 MG; Start 03/20/17 at 09:30 Docusate Sodium (Colace) 100 mg BID PRN PO CONSTIPATION; Start 03/20/17 at 09: 30 Bisacodyl (Dulcolax Supp) 10 mg BID PRN [place] CONSTIPATION; Start 03/20/17 at 09: 30 Sodium Biphosphate/ Sodium Phosphate (Fleet Enema) 133 ml BID PRN [place] CONSTIPATION; Start 03/20/17 at 09:30 Famotidine (Pepcid Iv) 20 mg DAILY IV ; Start 03/21/17 at 09:00 Enoxaparin Sodium (Lovenox) 40 mg DAILY SC ; Start 03/21/17 at 09:00 DEJAH DIAZ NP Mar 20, 2017 14:20
--- NOTE | 2017-03-20 15:10 | PN ---
Date/Time of Note Date/Time of Note DATE: 03/20/17 TIME: 15:09 Assessment/Plan VTE Prophylaxis VTE Prophylaxis Intervention: SCD's Lines/Catheters IV [facility] (from [facility] Saline Lock Urinary Cath still in place: No Assessment/Plan Assessment/Plan 61-year-old male with pancreatitis, suspect gallstone etiology and cholecystitis 1. Abdominal pain: suspect gallstone pancreatitis v pancreatitis from other etio and cholecystitis -sp cholecystectomy and and hernia repair today -cont pain control -cont abx as per gen surg FEN as per gen surg DVT prophx Subjective 24 Hr Interval Summary Free Text/Dictation Feels ok. sp cholecystectomy and umbilical hernia repair earlier today. Exam/Review of Systems Vital Signs Vitals Vital Signs Date Time Temp Pulse Resp B/P Pulse Ox O2 Delivery O2 Flow Rate FiO2 03/20/17 13:02 62 03/20/17 12:36 97.9 20 143/73 97 Room Air Intake and Output 03/19/17 03/19/17 03/20/17 15:00 23:00 07:00 Intake Total 100 ml 1000 ml Balance 100 ml 1000 ml Exam nad, sitting at side of bed no mrg lungs clear surgical dressings clean/dry/intact no le edema Results Result Diagram: 03/20/17 0655 03/20/17 0655 Results 24 hrs Laboratory Tests Test 03/20/17 06:55 White Blood Count 8.7 Red Blood Count 5.29 Hemoglobin 14.9 Hematocrit 43.5 Mean Corpuscular Volume 82.2 Mean Corpuscular Hemoglobin 28.2 L Mean Corpuscular Hemoglobin Concent 34.3 Red Cell Distribution Width 11.9 Platelet Count 242 Mean Platelet Volume 9.7 Neutrophils % 71.0 Lymphocytes % 13.9 L Monocytes % 12.4 H Eosinophils % 1.4 Basophils % 0.5 Nucleated Red Blood Cells % 0.0 Neutrophils # 6.2 Lymphocytes # 1.2 Monocytes # 1.1 H Eosinophils # 0.1 Basophils # 0.0 Nucleated Red Blood Cells # 0.0 Sodium Level 142 Potassium Level 3.5 Chloride Level 102 Carbon Dioxide Level 24 Anion Gap 20 H Blood Urea Nitrogen 11 Creatinine 0.76 Glucose Level 118 Calcium Level 9.4 Phosphorus Level 3.1 Magnesium Level 2.0 Total Bilirubin 0.3 Direct Bilirubin 0.00 Indirect Bilirubin 0.3 Aspartate Amino Transf (AST/SGOT) 24 Alanine Aminotransferase (ALT/SGPT) 34 Alkaline Phosphatase 61 Total Protein 7.5 Albumin 3.9 Globulin 3.60 H Albumin/Globulin Ratio 1.08 Amylase Level 121 Lipase 966 H Medications Medications Current Medications Ondansetron HCl (Zofran Inj) 4 mg Q6H PRN IV NAUSEA AND/OR VOMITING; Start at 15:00 Acetaminophen (Tylenol Tab) 650 mg Q6H PRN PO PAIN LEVEL 1-3 OR FEVER Last administered on 03/19/17 04:31; Admin Dose 650 MG; Start 03/16/17 at 15:00 Docusate Sodium (Colace) 100 mg Q12H PRN PO CONSTIPATION; Start 03/16/17 at 15: 00 Magnesium Hydroxide (Milk Of Mag) 30 ml DAILY PRN PO CONSTIPATION; Start at 15:00 Sodium Biphosphate/ Sodium Phosphate (Fleet Enema) 133 ml DAILY PRN [place] CONSTIPATION; Start 03/16/17 at 15:00 Heparin Sodium (Porcine) (Heparin (5000 Units/0.5 ml)) 5,000 unit Q12 SC Last administered on 03/19/17 21:00; Admin Dose 5,000 UNIT; Start 03/16/17 at 16:10 Lorazepam (Ativan) 0.5 mg Q6H PRN IV ANXIETY; Start 03/16/17 at 15:00 Nitroglycerin (Nitroglycerin (Sl Tab) 0.4 Mg) 1 tab Q5M PRN SL ANGINA; Start at 15:00 Hydralazine HCl 10 mg 10 mg Q6H PRN IV ELEVATED BLOOD PRESSURE Last administered on 03/20/17 05:22; Admin Dose 10 MG; Start 03/20/17 at 05:30 Potassium Chloride/Dextrose/ Sod Cl (D5-1/2ns + KCl 20 Meq) 1,000 ml @ 100 mls/ hr Q10H IV Last administered on 03/20/17 10:34; Admin Dose 100 MLS/HR; Start 03/20/17 at 09:19 Acetaminophen/ Hydrocodone Bitart ([place] (5/325)) 1 tab Q4H PRN PO PAIN LEVEL 4 -7; Start 03/20/17 at 09:30 Acetaminophen/ Hydrocodone Bitart ([place] (5/325)) 2 tab Q4H PRN PO PAIN LEVEL 7 -10; Start 03/20/17 at 09:30 Hydromorphone HCl (Dilaudid) 0.5 mg Q2H PRN IV PAIN; Start 03/20/17 at 09:30 Hydromorphone HCl (Dilaudid) 1 mg Q2H PRN IV PAIN Last administered on t 10:33; Admin Dose 1 MG; Start 03/20/17 at 09:30 Docusate Sodium (Colace) 100 mg BID PRN PO CONSTIPATION; Start 03/20/17 at 09: 30 Bisacodyl (Dulcolax Supp) 10 mg BID PRN [place] CONSTIPATION; Start 03/20/17 at 09: 30 Sodium Biphosphate/ Sodium Phosphate (Fleet Enema) 133 ml BID PRN [place] CONSTIPATION; Start 03/20/17 at 09:30 Famotidine (Pepcid Iv) 20 mg DAILY IV ; Start 03/21/17 at 09:00 Enoxaparin Sodium (Lovenox) 40 mg DAILY SC ; Start 03/21/17 at 09:00 CARON MOURA MD Mar 20, 2017 15:10
[2017-03-21] VITALS (9 sets, daily range): BP systolic 142–195; BP diastolic 70–89; PULSE 66–74; RESP 16–21
[2017-03-21] MEDS: hydrALAzine 20 MG INJ IV PRN (05:59)
[2017-03-21 07:15] LABS: BASOPHILS % 0.4 % (0.0-2.0); EOSINOPHILS # 0.1 10^3/ul (0.0-0.5); EOSINOPHILS % 1.7 % (0.0-7.0); HEMATOCRIT 42.1 % (42.0-52.0); HEMOGLOBIN 14.3 g/dl (14.0-18.0); LYMPHOCYTES # 1.1 10^3/ul (0.8-2.9); LYMPHOCYTES % 15.5 % (15.0-51.0); MEAN CORPUSCULAR HEMOGLOBIN 28.3 pg (29.0-33.0); MEAN CORPUSCULAR VOLUME 83.4 fl (82.0-101.0); MEAN PLATELET VOLUME 9.4 fl (7.4-10.4); MONOCYTES % 13.5 % (0.0-11.0); NEUTROPHIL # 4.9 10^3/ul (1.6-7.5); NEUTROPHILS % 67.9 % (39.0-77.0); PLATELET COUNT 243 10^3/UL (140-415); RED BLOOD COUNT 5.05 10^6/ul (4.70-6.10); RED CELL DISTRIBUTION WIDTH 12.2 % (11.5-14.5); WHITE BLOOD COUNT 7.2 10^3/ul (4.8-10.8)
[2017-03-21 07:38] LABS: INR 0.97; PROTIME 12.9 Sec (12.2-14.2)
[2017-03-21 07:39] LABS: ALBUMIN 3.6 g/dl (3.3-4.9); ALBUMIN/GLOBULIN RATIO 1.09; BILIRUBIN,INDIRECT 0.1 mg/dl (0-1.1); BILIRUBIN,TOTAL 0.1 mg/dl (0.2-1.3); CALCIUM 8.9 mg/dl (8.4-10.2); CREATININE 0.61 mg/dl (0.61-1.24); CREATININE 0.66 mg/dl (0.61-1.24); MAGNESIUM 1.9 mg/dl (1.7-2.5); PARTIAL THROMBOPLASTIN TIME 29.6 Sec (25.0-35.0); POTASSIUM 3.7 mmol/L (3.5-5.1); POTASSIUM 3.8 mmol/L (3.5-5.1); TOTAL PROTEIN 6.9 g/dl (6.1-8.1)
[2017-03-21] MEDS: FAMOTIDINE 20 MG INJ IV SCH (08:43)
[2017-03-21] MEDS: ENOXAPARIN 40 MG/0.4 ML SYG SC SCH (08:44)
--- NOTE | 2017-03-21 13:16 | PN ---
Date/Time of Note Date/Time of Note DATE: 03/21/17 TIME: 13:14 Assessment/Plan VTE Prophylaxis VTE Prophylaxis Intervention: ambulation Lines/Catheters IV C[facility] Type (from [facility] Saline Lock Urinary Cath still in place: No Assessment/Plan Assessment/Plan Assessment * Abdominal pain Acute pancreatitis improved MRCP . Peripancreatic phlegmon adjacent to the pancreatic tail and body with phlegmon in the left greater than right anterior pararenal spaces but no evidence of pancreatic necrosis on this unenhanced exam. . Gallbladder wall thickening and pericholecystic inflammation concerning for cholecystitis, the gallstone is better visualized on the earlier ultrasound. . Normal MRCP without evidence of choledocholithiasis. Cholelithiasis S/P laparoscopic cholecystectomy Plan * continue present management * case discussed with Dr Varma * Progression of Diet c/o surgery * further orders will depend on clinical course Subjective 24 Hr Interval Summary Free Text/Dictation * Course reviewed with RN * patient seen and examined * No untoward events overnight Exam/Review of Systems Vital Signs Vitals Vital Signs Date Time Temp Pulse Resp B/P Pulse Ox O2 Delivery O2 Flow Rate FiO2 03/21/17 11:12 98.3 72 18 150/77 96 03/21/17 02:25 Room Air Intake and Output 03/20/17 03/20/17 03/21/17 15:00 23:00 07:00 Intake Total 800 ml 1450 ml 500 ml Output Total 5 ml 300 ml Balance 795 ml 1150 ml 500 ml Exam Constitutional: alert, oriented Head: normocephalic Neck: non-tender, supple Respiratory: clear to auscultation, normal air movement Cardiovascular: nl pulses, regular rate and rhythm Gastrointestinal: bowel sounds, distended, non-tender, soft Musculoskeletal: nl extremities to inspection, nl gait and stance Extremities: normal pulses Neurological: nl speech, nl strength Lymph: nl lymph nodes Results Result Diagram: 03/21/17 0700 03/21/17 0700 Results 24 hrs Laboratory Tests Test 03/21/17 07:00 White Blood Count 7.2 Red Blood Count 5.05 Hemoglobin 14.3 Hematocrit 42.1 Mean Corpuscular Volume 83.4 Mean Corpuscular Hemoglobin 28.3 L Mean Corpuscular Hemoglobin Concent 34.0 Red Cell Distribution Width 12.2 Platelet Count 243 Mean Platelet Volume 9.4 Neutrophils % 67.9 Lymphocytes % 15.5 Monocytes % 13.5 H Eosinophils % 1.7 Basophils % 0.4 Nucleated Red Blood Cells % 0.0 Neutrophils # 4.9 Lymphocytes # 1.1 Monocytes # 1.0 H Eosinophils # 0.1 Basophils # 0.0 Nucleated Red Blood Cells # 0.0 Prothrombin Time 12.9 Prothrombin Time Ratio 1.0 INR International Normalized Ratio 0.97 Activated Partial Thromboplast Time 29.6 Sodium Level 143 Potassium Level 3.8 Chloride Level 105 Carbon Dioxide Level 26 Anion Gap 16 Blood Urea Nitrogen 4 L Creatinine 0.61 Glucose Level 124 Calcium Level 8.9 Phosphorus Level 3.0 Magnesium Level 1.9 Total Bilirubin 0.1 L Direct Bilirubin 0.00 Indirect Bilirubin 0.1 Aspartate Amino Transf (AST/SGOT) 50 #H Alanine Aminotransferase (ALT/SGPT) 56 Alkaline Phosphatase 68 B-Type Natriuretic Peptide 326 H Total Protein 6.9 Albumin 3.6 Globulin 3.30 H Albumin/Globulin Ratio 1.09 Amylase Level 75 Lipase 573 H Medications Medications Current Medications Ondansetron HCl (Zofran Inj) 4 mg Q6H PRN IV NAUSEA AND/OR VOMITING; Start at 15:00 Acetaminophen (Tylenol Tab) 650 mg Q6H PRN PO PAIN LEVEL 1-3 OR FEVER Last administered on 03/19/17 04:31; Admin Dose 650 MG; Start 03/16/17 at 15:00 Docusate Sodium (Colace) 100 mg Q12H PRN PO CONSTIPATION; Start 03/16/17 at 15: 00 Magnesium Hydroxide (Milk Of Mag) 30 ml DAILY PRN PO CONSTIPATION; Start at 15:00 Sodium Biphosphate/ Sodium Phosphate (Fleet Enema) 133 ml DAILY PRN [place] CONSTIPATION; Start 03/16/17 at 15:00 Lorazepam (Ativan) 0.5 mg Q6H PRN IV ANXIETY; Start 03/16/17 at 15:00 Nitroglycerin (Nitroglycerin (Sl Tab) 0.4 Mg) 1 tab Q5M PRN SL ANGINA; Start at 15:00 Hydralazine HCl (Apresoline) 10 mg Q6H PRN IV ELEVATED BLOOD PRESSURE Last administered on 03/21/17 05:59; Admin Dose 10 MG; Start 03/20/17 at 05:30 Acetaminophen/ Hydrocodone Bitart ([place] (5/325)) 1 tab Q4H PRN PO PAIN LEVEL 4 -7; Start 03/20/17 at 09:30 Acetaminophen/ Hydrocodone Bitart ([place] (5/325)) 2 tab Q4H PRN PO PAIN LEVEL 7 -10; Start 03/20/17 at 09:30 Hydromorphone HCl (Dilaudid) 0.5 mg Q2H PRN IV PAIN; Start 03/20/17 at 09:30 Hydromorphone HCl (Dilaudid) 1 mg Q2H PRN IV PAIN Last administered on 10:33; Admin Dose 1 MG; Start 03/20/17 at 09:30 Docusate Sodium (Colace) 100 mg BID PRN PO CONSTIPATION; Start 03/20/17 at 09: 30 Bisacodyl (Dulcolax Supp) 10 mg BID PRN [place] CONSTIPATION; Start 03/20/17 at 09: 30 Sodium Biphosphate/ Sodium Phosphate (Fleet Enema) 133 ml BID PRN [place] CONSTIPATION; Start 03/20/17 at 09:30 Famotidine (Pepcid Iv) 20 mg DAILY IV Last administered on 03/21/17 08:43; Admin Dose 20 MG; Start 03/21/17 at 09:00 Enoxaparin Sodium (Lovenox) 40 mg DAILY SC Last administered on 03/21/17 08:44 ; Admin Dose 40 MG; Start 03/21/17 at 09:00 DEJAH DIAZ NP Mar 21, 2017 13:16
--- NOTE | 2017-03-21 14:30 | PN ---
Date/Time of Note Date/Time of Note DATE: 03/21/17 TIME: 14:26 Assessment/Plan VTE Prophylaxis VTE Prophylaxis Intervention: SCD's Lines/Catheters IV C[facility]ter Type (from [facility] Saline Lock Urinary Cath still in place: No Assessment/Plan Assessment/Plan 61-year-old male with pancreatitis, suspect gallstone etiology and cholecystitis 1. Abdominal pain: suspect gallstone pancreatitis v pancreatitis from other etio and cholecystitis -sp cholecystectomy and and hernia repair 7.25 -cont pain control 2. elevated BPs: suspect pt with htn as all BPs here >150/90 start low dose norvasc FEN as per gen surg DVT prophx Subjective 24 Hr Interval Summary Free Text/Dictation Feeling well. Wondering when he'll be able to go home Exam/Review of Systems Vital Signs Vitals Vital Signs Date Time Temp Pulse Resp B/P Pulse Ox O2 Delivery O2 Flow Rate FiO2 03/21/17 11:12 98.3 72 18 150/77 96 03/21/17 02:25 Room Air Intake and Output 03/20/17 03/20/17 03/21/17 15:00 23:00 07:00 Intake Total 800 ml 1450 ml 500 ml Output Total 5 ml 300 ml Balance 795 ml 1150 ml 500 ml Exam nad laying in bed no mrg lungs clear abd soft, surgical dressings c/d/i no le edema Results Result Diagram: 03/21/17 0700 03/21/17 0700 Results 24 hrs Laboratory Tests Test 03/21/17 07:00 White Blood Count 7.2 Red Blood Count 5.05 Hemoglobin 14.3 Hematocrit 42.1 Mean Corpuscular Volume 83.4 Mean Corpuscular Hemoglobin 28.3 L Mean Corpuscular Hemoglobin Concent 34.0 Red Cell Distribution Width 12.2 Platelet Count 243 Mean Platelet Volume 9.4 Neutrophils % 67.9 Lymphocytes % 15.5 Monocytes % 13.5 H Eosinophils % 1.7 Basophils % 0.4 Nucleated Red Blood Cells % 0.0 Neutrophils # 4.9 Lymphocytes # 1.1 Monocytes # 1.0 H Eosinophils # 0.1 Basophils # 0.0 Nucleated Red Blood Cells # 0.0 Prothrombin Time 12.9 Prothrombin Time Ratio 1.0 INR International Normalized Ratio 0.97 Activated Partial Thromboplast Time 29.6 Sodium Level 143 Potassium Level 3.8 Chloride Level 105 Carbon Dioxide Level 26 Anion Gap 16 Blood Urea Nitrogen 4 L Creatinine 0.61 Glucose Level 124 Calcium Level 8.9 Phosphorus Level 3.0 Magnesium Level 1.9 Total Bilirubin 0.1 L Direct Bilirubin 0.00 Indirect Bilirubin 0.1 Aspartate Amino Transf (AST/SGOT) 50 #H Alanine Aminotransferase (ALT/SGPT) 56 Alkaline Phosphatase 68 B-Type Natriuretic Peptide 326 H Total Protein 6.9 Albumin 3.6 Globulin 3.30 H Albumin/Globulin Ratio 1.09 Amylase Level 75 Lipase 573 H Medications Medications Current Medications Ondansetron HCl (Zofran Inj) 4 mg Q6H PRN IV NAUSEA AND/OR VOMITING; Start at 15:00 Acetaminophen (Tylenol Tab) 650 mg Q6H PRN PO PAIN LEVEL 1-3 OR FEVER Last administered on 03/19/17 04:31; Admin Dose 650 MG; Start 03/16/17 at 15:00 Docusate Sodium (Colace) 100 mg Q12H PRN PO CONSTIPATION; Start 03/16/17 at 15: 00 Magnesium Hydroxide (Milk Of Mag) 30 ml DAILY PRN PO CONSTIPATION; Start at 15:00 Sodium Biphosphate/ Sodium Phosphate (Fleet Enema) 133 ml DAILY PRN [place] CONSTIPATION; Start 03/16/17 at 15:00 Lorazepam (Ativan) 0.5 mg Q6H PRN IV ANXIETY; Start 03/16/17 at 15:00 Nitroglycerin (Nitroglycerin (Sl Tab) 0.4 Mg) 1 tab Q5M PRN SL ANGINA; Start at 15:00 Hydralazine HCl (Apresoline) 10 mg Q6H PRN IV ELEVATED BLOOD PRESSURE Last administered on 03/21/17 05:59; Admin Dose 10 MG; Start 03/20/17 at 05:30 Acetaminophen/ Hydrocodone Bitart ([place] (5/325)) 1 tab Q4H PRN PO PAIN LEVEL 4 -7; Start 03/20/17 at 09:30 Acetaminophen/ Hydrocodone Bitart ([place] (5/325)) 2 tab Q4H PRN PO PAIN LEVEL 7 -10; Start 03/20/17 at 09:30 Hydromorphone HCl (Dilaudid) 0.5 mg Q2H PRN IV PAIN; Start 03/20/17 at 09:30 Hydromorphone HCl (Dilaudid) 1 mg Q2H PRN IV PAIN Last administered on 10:33; Admin Dose 1 MG; Start 03/20/17 at 09:30 Docusate Sodium (Colace) 100 mg BID PRN PO CONSTIPATION; Start 03/20/17 at 09: 30 Bisacodyl (Dulcolax Supp) 10 mg BID PRN [place] CONSTIPATION; Start 03/20/17 at 09: 30 Sodium Biphosphate/ Sodium Phosphate (Fleet Enema) 133 ml BID PRN [place] CONSTIPATION; Start 03/20/17 at 09:30 Famotidine (Pepcid Iv) 20 mg DAILY IV Last administered on 03/21/17 08:43; Admin Dose 20 MG; Start 03/21/17 at 09:00 Enoxaparin Sodium (Lovenox) 40 mg DAILY SC Last administered on 03/21/17 08:44 ; Admin Dose 40 MG; Start 03/21/17 at 09:00 CARON MOURA MD Mar 21, 2017 14:30
[2017-03-21] MEDS ORDERED: GLYCOPYRROLATE 0.4 MG INJ ONE (18:01)
[2017-03-21] MEDS ORDERED: SUCCINYLCHOLINE CHLORIDE 100 MG/5 ML SYG IV ONE (18:01)
[2017-03-21] MEDS ORDERED: MIDAZOLAM 1 MG/ML 2 ML INJ ONE (18:01)
[2017-03-21] MEDS ORDERED: LIDOCAINE 2% (SDV) 5 ML INJ ONE (18:01)
[2017-03-21] MEDS ORDERED: PROPOFOL 20 ML ONE (18:01)
[2017-03-21] MEDS ORDERED: CEFAZOLIN 1 GM INJ ONE (18:01)
[2017-03-21] MEDS ORDERED: NEOSTIGMINE 3 MG/3 ML SYRINGE ONE (18:01)
[2017-03-21] MEDS ORDERED: FENTAnyl 50 MCG/ML VIAL ONE ×2 (18:01)
[2017-03-21] MEDS ORDERED: ONDANSETRON 4 MG INJ ONE (18:01)
[2017-03-21] MEDS ORDERED: METOCLOPRAMIDE 10 MG INJ ONE (18:01)
[2017-03-21] MEDS ORDERED: ROCURONIUM 50 MG INJ ONE (18:01)
[2017-03-21] MEDS ORDERED: BUPIVACAINE 0.25%/EPI (SDV) 30 ML INJ ONE (18:01)
--- NOTE | 2017-03-21 20:41 | OPR ---
Date/Time of Note Date/Time of Note DATE: 03/20/17 TIME: 20:39 Operative Report Procedure Description [facility] INPATIENT OPERATIVE NOTE (late entry) PLACE OF SERVICE: [facility] DATE OF SURGERY: 03/20/2017 PREOPERATIVE DIAGNOSIS: 1. Acute pancreatitis, possibly multifactorial and possible signs of acute cholecystitis 2. Cardiomegaly with scattered areas of atelectasis in the bases of the lungs. 3. Hepatomegaly with small gallstones in the gallbladder. 4. Small hiatal hernia. 5. Atherosclerotic vascular disease. 6. Midline umbilical hernia containing fat measuring 1.4 cm AP by 1.7 cm transverse. 7. Bilateral inguinal hernias containing fat. 8. Right degenerative facet arthropathy is at L5-S1. POSTOPERATIVE DIAGNOSIS: 1. Acute pancreatitis, possibly multifactorial 2. Cardiomegaly with scattered areas of atelectasis in the bases of the lungs. 3. Hepatomegaly with small gallstones in the gallbladder. 4. Small hiatal hernia. 5. Atherosclerotic vascular disease. 6. Midline umbilical hernia containing fat measuring 1.4 cm AP by 1.7 cm transverse. 7. Bilateral inguinal hernias containing fat. 8. Right degenerative facet arthropathy is at L5-S1. OPERATION: 1. Laparoscopic cholecystectomy SURGEON: Almaz Hernández M.D. STOCK CLERK: None ANESTHESIA: General endotracheal tube anesthesia ANESTHESIOLOGIST: Shakira Howell M.D. BRIEF SUMMARY: An otherwise uncomplicated laparoscopic cholecystectomy was performed with findings of normal-appearing gallbladder with slight inflammation. Updated clinical summary: A very pleasant 61-year-old gentleman with a few comorbidities being admitted through the emergency department at [facility] for acute pancreatitis, cholelithiasis, and possible early acute cholecystitis. Comorbidities: 1. Acute pancreatitis. 2. Cardiomegaly with scattered areas of atelectasis in the bases of the lungs. 3. Hepatomegaly with small gallstones in the gallbladder. 4. Small hiatal hernia. 5. Atherosclerotic vascular disease. 6. Midline umbilical hernia containing fat measuring 1.4 cm AP by 1.7 cm transverse. 7. Bilateral inguinal hernias containing fat. 8. Right degenerative facet arthropathy is at L5-S1. BRIEF HISTORY: The patient is a very pleasant 61-year-old gentleman with a few comorbidities being admitted through the emergency department at [facility] for acute pancreatitis, cholelithiasis, and possible early acute cholecystitis. Patient stabilized with inpatient care. Given the appearance of the gallbladder on the preoperative images, and also to decrease the risk of further pancreatitis in the future, I recommended that patient undergoes semielective laparoscopic cholecystectomy towards the end of this admission. I met with the patient and family and counseled them regarding the possible options of treatment, and I strongly suggested a laparoscopic, possible open cholecystectomy. We reviewed the operation in detail as well as the risks, benefits, alternatives, and expected outcomes of this operation. After careful consideration of all the risks, benefits, and alternatives, the patient and family appeared to understand those risks and wished to proceed with surgery. For a detailed report of my consultation with patient and family, please refer to my separate consultation note. STATEMENT OF THE INFORMED CONSENT: The patient and family appeared to understand the risks of the operation to include, but not be limited to risk of postoperative pain and scar tissue, possible infection or bleeding requiring other interventions such as opening the wound, placement of drainage catheters, or other operative interventions; possible injury to surrounding to structures including bowel, bladder, bile duct, or blood vessels, or solid organs such as liver, kidney, or pancreas requiring other interventions or procedures; possible leakage of bile from surgical clip sites, suture lines, or worse, from common bile duct injury, causing significant increase in morbidity and mortality and requiring multiple interventions including but not limited to, placement of drainage catheters, imaging studies, as well as operative interventions; possible other source of sepsis such as urinary tract infections or pneumonias, or other sources of potentially life threatening problems such as deep venous thrombus formation causing pulmonary embolism, myocardial arrhythmias and infarctions, and even . After careful consideration of all their options, the patient and family appeared to understand and wished to proceed with surgery. DESCRIPTION OF PROCEDURE: After obtaining informed consent, the patient was brought into the operating room and was placed in a normal supine position, where successful general endotracheal tube anesthesia was performed. The patient 's abdominal skin was prepped and draped, from the nipple line down to the level of the groins, in the usual sterile fashion. Intravenous access was already in place, and appropriately chosen and dosed prophylactic intravenous antimicrobials were administered. We then called a surgical time-out where patient's identification, date of , nature of the operation, allergies, presence of intravenous antimicrobials, presence of needed equipment, and any other concerns were reviewed and agreed upon by all members of the operating room team. We then started the operation by placing a 5-mm skin incision in the right- upper quadrant, subcostal midclavicular line, and introduced a 5-mm [employer] trocar into the peritoneal space, visualizing all the layers of the abdominal wall as we entered. Note that there was no indication of any injury to underlying structures once we entered the peritoneum. We insufflated the abdominal cavity to a maximum pressure of 15 mmHg, again, confirmed lack of any injury to underlying structures prior to visualizing the rest of the abdominal cavity. We found the fundus of the gallbladder to be visible. There was no evidence of malignancy. No evidence of calcifications or significant issues with adhesions, or other abnormalities. The liver appeared to be healthy. With this information, we went a head and placed the other trocars under direct visualization, after injecting their sites with 0.25% Marcaine with epinephrine , placing a 5-mm trocar in the umbilical midline area, a 5-mm trocar in the right anterior axillary line, and a 12-mm trocar in the midline subxiphoid region. With our instruments in place, we had excellent visualization and access to the right-upper quadrant. We then we grasped the fundus of the gallbladder and pointed up towards the right-upper quadrant. We were then able to grasp the infundibulum and pull it out in order to expose the critical triangle of Calot. We then placed our usual serosal cuts along the long axis of the gallbladder 1 cm away from its attachment to the liver bed up towards the fundus, and then joined these 2 lines under the infundibulum, taking care not to deliver any energy to underlying structures. To maximize degree of safety of the operation, I decided to take the gallbladder top-down which we accomplished using cautery. We then performed meticulous dissection to identify and circumferentially isolate both the cystic duct and cystic artery, prior to transecting them between 2 surgical Endoclips, proximally and one distally on the cystic artery and 3 surgical endoclips proximally and one distally on the cystic duct, transecting both using cold scissors, and only after making sure that these were the only 2 structures going into the gallbladder. We then shaved the gallbladder off the gallbladder bed using cautery, and then delivered it out inside of an EndoCatch bag through the 12-mm trocar site without enlarging the fascia or contaminating the wound. The gallbladder was sent to Pathology for evaluation. Returning to the abdominal cavity, we ensured that there was adequate hemostasis and bile-stasis prior to removal of all of or equipment, including the pneumoperitoneum, and then reapproximating the 12-mm trocar site with one [id number] Vicryl suture, followed by washing the wounds with copious amounts of normal saline, and then reapproximating the skin using interrupted 4- 0 Monocryl sutures. Light dressing was then applied. At the end of the operation, both the sponge count and needle count were reportedly correct x2. The patient tolerated the procedure without any reported complications. ESTIMATED BLOOD LOSS: Less than 10 mL. BLOOD OR BLOOD PRODUCT TRANSFUSIONS: None to my knowledge. SPECIMENS: 1. Gallbladder COMPLICATIONS: None. DISPOSITION: Recovery area. Disclaimer: Inadvertent spelling and grammatical errors are likely due to EHR/ dictation software use and do not reflect on the quality of delivered patient care. ALMAZ HERNÁNDEZ M.D. Mar 21, 2017 20:41
[2017-03-21] MEDS ORDERED: ZOLPIDEM 5 MG TAB PO PRN (22:30)
--- NOTE | 2017-03-21 22:31 | PN ---
Date/Time of Note Date/Time of Note DATE: 03/21/17 TIME: 22:21 Assessment/Plan Lines/Catheters IV Catheter Type (from Nrsg): Saline Lock [place] in Place (from Nrs): No Assessment/Plan Assessment/Plan [facility] Progress Note Date of Service: 03/21/2017 Place of service: [facility] fifth floor telemetry Today's Assessment & Plan: Overall stable and doing well. No indication of major post operative complications or SSI's. No obvious clinical evidence of pancreatitis. HTN noted. No further immediate surgical issues and can d/c home when medically cleared. Explained this to patient and answered all his questions to the best of my ability. Patient and family appeared to understand and agreed with the plans. With above assessment, I've recommended the following for today: 1. Continue current cares 2. Regular diet 3. D/c home when medically cleared 4. D/c instructions: "Please call [phone] if any of fever, nausea, vomiting, discharge from wound, wound redness, increase or sudden pain, blood in stool or vomit, or any other unusual signs or symptoms. Also, please call the same number in a few days to schedule an appointment for your follow up visit. Patient may remove dressings tomorrow. Showers OK starting tomorrow. No swimming , hot tub or bath for 2 weeks. No lifting more than 25 lbs for 8 weeks." Thank you again for your great care of this very pleasant patient and wonderful family. If there are any questions, please feel free to call me at [phone]. Nature of presenting problem: High severity Please note that, given the multiple number of diagnoses or management options, the moderate amount and/or complexity of data needed to be reviewed, and moderate risk of complications and/or morbidity or mortality, this qualifies as moderate complexity type of decision-making. Disclaimer: Inadvertent spelling and grammatical errors are likely due to EHR/ dictation software use and do not reflect on the quality of delivered patient care. Also, please note that the electronic time recorded on this node does not necessarily reflect the actual time of the visit. Updated clinical summary: A very pleasant 61-year-old gentleman with a few comorbidities being admitted through the emergency department at [facility] for acute pancreatitis, cholelithiasis, and possible early acute cholecystitis. Comorbidities: 1. Acute pancreatitis, possibly multifactorial 2. Cardiomegaly with scattered areas of atelectasis in the bases of the lungs. 3. Hepatomegaly with small gallstones in the gallbladder. 4. Small hiatal hernia. 5. Atherosclerotic vascular disease. 6. Midline umbilical hernia containing fat measuring 1.4 cm AP by 1.7 cm transverse. 7. Bilateral inguinal hernias containing fat. 8. Right degenerative facet arthropathy is at L5-S1. 9. S/p an otherwise uncomplicated laparoscopic cholecystectomy at [facility] 03/20/17 with findings of normal-appearing gallbladder with slight inflammation. Subjective: No major events or complaints; no major abd pain and under control with medications; no n/v/d; no sob or cp; + flatus; - BM; + activity Objective: Vitals: See below I's & O's: See below Exam: GENERAL: On exam, the patient was lying in bed and appeared to be comfortable and in no acute distress. ABDOMEN: Soft, mild to nontender and nondistended. There are no peritoneal signs or guarding. Incision dressings c/d/i w/o obvious underlying e/e/d/h. SKIN: Skin appears to be pink and feels warm to touch. NEUROLOGIC: Patient is awake, alert, and follows commands appropriately. Labs: See below Exam/Review of Systems Vital Signs Vitals Vital Signs Date Time Temp Pulse Resp B/P Pulse Ox O2 Delivery O2 Flow Rate FiO2 03/21/17 20:36 97.9 89 20 170/70 99 03/21/17 02:25 Room Air Intake and Output 03/20/17 03/20/17 03/21/17 14:59 22:59 06:59 Intake Total 800 ml 1450 ml 500 ml Output Total 5 ml 300 ml Balance 795 ml 1150 ml 500 ml Results Result Diagram: 03/21/17 0700 03/21/17 0700 ALMAZ HERNÁNDEZ M.D. Mar 21, 2017 22:31
[2017-03-22 02:56] VITALS: BP 144/75; RESP 20
[2017-03-22 07:22] VITALS: BP 159/84; RESP 18
[2017-03-22] MEDS: FAMOTIDINE 20 MG INJ IV SCH (08:28)
[2017-03-22] MEDS: ENOXAPARIN 40 MG/0.4 ML SYG SC SCH (08:38)
[2017-03-22] MEDS ORDERED: AMLODIPINE 5 MG TAB PO SCH (09:00)
[2017-03-22 10:03] LABS: BASOPHILS % 0.5 % (0.0-2.0); EOSINOPHILS # 0.2 10^3/ul (0.0-0.5); EOSINOPHILS % 2.6 % (0.0-7.0); HEMATOCRIT 42.8 % (42.0-52.0); HEMOGLOBIN 14.3 g/dl (14.0-18.0); LYMPHOCYTES # 1.2 10^3/ul (0.8-2.9); LYMPHOCYTES % 14.9 % (15.0-51.0); MEAN CORPUSCULAR HEMOGLOBIN 28.1 pg (29.0-33.0); MEAN CORPUSCULAR HGB CONC 33.4 g/dl (32.0-37.0); MEAN CORPUSCULAR VOLUME 84.1 fl (82.0-101.0); MEAN PLATELET VOLUME 9.5 fl (7.4-10.4); MONOCYTE # 0.9 10^3/ul (0.3-0.9); MONOCYTES % 11.1 % (0.0-11.0); NEUTROPHIL # 5.6 10^3/ul (1.6-7.5); NEUTROPHILS % 69.3 % (39.0-77.0); PLATELET COUNT 284 10^3/UL (140-415); RED BLOOD COUNT 5.09 10^6/ul (4.70-6.10); RED CELL DISTRIBUTION WIDTH 12.4 % (11.5-14.5)
[2017-03-22 10:25] LABS: CALCIUM 9.6 mg/dl (8.4-10.2); CREATININE 0.66 mg/dl (0.61-1.24)
[2017-03-22] MEDS ORDERED: HYDR-3498 PO (10:46)
[2017-03-22] MEDS ORDERED: AMLO-145 PO (10:46)
--- NOTE | 2017-03-22 10:49 | PDOCDIS ---
Discharge Instructions CONDITION Patient Condition: Stable HOME CARE INSTRUCTIONS: Special Diet: Mechanical Soft Diet FOLLOW UP/APPOINTMENTS Follow-up Plan From the surgeon: Please call [phone] if any of fever, nausea, vomiting, discharge from wound , wound redness, increase or sudden pain, blood in stool or vomit, or any other unusual signs or symptoms. Also, please call the same number in a few days to schedule an appointment for your follow up visit. Patient may remove dressings today. Showers OK starting today. No swimming, hot tub or bath for 2 weeks. No lifting more than 25 lbs for 8 weeks Of note, your blood pressure was frequently on the high side during your hospital stay. You have been started on a blood pressure medication called amlodipine. Please take this pill daily and follow up with your regular doctor in 7 days for a blood pressure check to ensure this medication is working well enough SCHOOL/WORK RELEASE May return to School/Work with: With Restrictions CARON MOURA MD Mar 22, 2017 10:49
--- NOTE | 2017-03-22 10:50 | DS ---
Date/Time of Note Date/Time of Note DATE: 03/22/17 TIME: 10:49 Discharge Summary Admission/Discharge Info Admit Date/Time Mar 16, 2017 at 13:40 Discharge Date/Time Discharge Diagnosis gallstone pancreatitis, hypertension Patient Condition: Good Consults general surgery, cardiology, gastroenterology Procedures 7. MRCP 1. Motion artifact limits the exam. 2. Peripancreatic phlegmon adjacent to the pancreatic tail and body with phlegmon in the left greater than right anterior pararenal spaces but no evidence of pancreatic necrosis on this unenhanced exam. 3. Gallbladder wall thickening and pericholecystic inflammation concerning for cholecystitis, the gallstone is better visualized on the earlier ultrasound. 4. Normal MRCP without evidence of choledocholithiasis. 5. Small amount of perihepatic and perisplenic ascites.. 03/16 CT AP 1. Acute pancreatitis with trace ascites. No pancreatic pseudocyst is identified. 2. Cardiomegaly with scattered areas of atelectasis in the bases of the lungs. 3. Hepatomegaly with small gallstones in the gallbladder. Ultrasound can be performed to evaluate for possible pericholecystic fluid if clinically indicated. 4. Small hiatal hernia. 5. Atherosclerotic vascular disease. 6. Midline umbilical hernia containing fat measuring 1.4 cm AP by 1.7 cm transverse. There are bilateral inguinal hernias containing fat. 7. Right degenerative facet arthropathy is at L5-S1. 7.21 gallbladder US 1. Cholelithiasis and gallbladder wall thickening. 2. Otherwise unremarkable right upper quadrant ultrasound. 03/17 TTE Conclusions 1. The left ventricle is normal in size and systolic function. 2. Estimated left ventricular ejection fraction for 60-65%. 3. Mild concentric left ventricular hypertrophy. 7.25 OPERATION:1. Laparoscopic cholecystectomy Hx of Present Illness HISTORY OF PRESENT ILLNESS: The patient is a 61-year-old male with a past medical history of hypertension and high cholesterol who presents with abdominal pain. Per family members the pain began this morning after eating some food. He said the pain also occurred about a month ago, but apparently he did not seek medical treatment at that time. Regarding this mornings pain he also had a vomiting episode x1 at home, nonbilious and nonbloody, and also again later when he came into the ER he had another vomiting episode nonbilious and nonbloody. Denied any chest pain. No headaches, dizziness or loss of consciousness. No diarrhea. No constipation. No upper or lower GI bleeding. No nausea. No arthralgias or myalgias. When he came into the ER today he had labs performed that showed an elevated white blood cell count of 16,000. He also had a lipase elevation of 25,900 and a sodium was slightly high at 147, and the surgeon and GI doctors were consulted in the ER to help come and see the patient. He also had a gallbladder ultrasound performed that showed cholelithiasis and gallbladder wall thickening, signs of acute cholecystitis and this was also seen on the CT of the abdomen and pelvis findings as well. Hospital Course Pt presented with abd pain 2/2 gallstone pancreatitis and cholecystitis. Cardiology consult obtained pre op as patient with a hx of HTN. Pt with excellent funcitonal status and TTE with just evidence of hypertension so no pre op ischemic eval was indicated. Pt had his lap chevy 7.25. Post op course uncomplicated. Of note pt with persistently elevated BPs in the hospital, was not on any BP meds as outpatient thus pt started on Norvasc. He was advised to f /u with PCP in 7 days for repeat BP check Home Meds Active Scripts Amlodipine Besylate* (Amlodipine Besylate*) 5 Mg Tablet, 10 MG PO DAILY for 14 Days, #14 TAB Prov:CARON MOURA MD 03/22/17 Follow-up Plan gen surg next week PCP next week for BP check Primary Care Provider [facility] Time spent on discharge: > 30 minutes Pending Labs Laboratory Tests Test 03/22/17 09:00 White Blood Count 8.010^3/ul (4.8-10.8) Red Blood Count 5.0910^6/ul (4.70-6.10) Hemoglobin 14.3g/dl (14.0-18.0) Hematocrit 42.8% (42.0-52.0) Mean Corpuscular Volume 84.1fl (82.0-101.0) Mean Corpuscular Hemoglobin 28.1pg (29.0-33.0) Mean Corpuscular Hemoglobin Concent 33.4g/dl (32.0-37.0) Red Cell Distribution Width 12.4% (11.5-14.5) Platelet Count 77873^3/UL (140-415) Mean Platelet Volume 9.5fl (7.4-10.4) Neutrophils % 69.3% (39.0-77.0) Lymphocytes % 14.9% (15.0-51.0) Monocytes % 11.1% (0.0-11.0) Eosinophils % 2.6% (0.0-7.0) Basophils % 0.5% (0.0-2.0) Nucleated Red Blood Cells % 0.0/100WBC (0.0-0.0) Neutrophils # 5.610^3/ul (1.6-7.5) Lymphocytes # 1.210^3/ul (0.8-2.9) Monocytes # 0.910^3/ul (0.3-0.9) Eosinophils # 0.210^3/ul (0.0-0.5) Basophils # 0.010^3/ul (0.0-0.1) Nucleated Red Blood Cells # 0.010^3/ul (0.0-0.0) Sodium Level 144mmol/L (135-144) Potassium Level 4.0mmol/L (3.5-5.1) Chloride Level 105mmol/L (97-110) Carbon Dioxide Level 25mmol/L (21-31) Anion Gap 18 (8-16) Blood Urea Nitrogen 10mg/dl (7-20) Creatinine 0.66mg/dl (0.61-1.24) Glucose Level 126mg/dl (70-220) Calcium Level 9.6mg/dl (8.4-10.2) Copies To: CC: ALMAZ HERNÁNDEZ M.D., ELLEN MD Mar 22, 2017 10:50
== END 2017-03-22 12:00 | disposition home or self-care (01) | DRG 417 ==
LOC: E/R 10:56 → TEL 13:40 → MS2 03-21 20:30
PROVIDERS: ADMIT Internal Medicine; ATTEND Internal Medicine
PROC: 0FT44ZZ Resection of Gallbladder, Percutaneous Endoscopic Approach (ICD-10-PCS; principal; 2017-03-20 07:30)
DX: K80.00 Calculus of gallbladder with acute cholecystitis without obstruction (principal); K85.10 Biliary acute pancreatitis without necrosis or infection; R18.8 Other ascites; R16.0 Hepatomegaly, not elsewhere classified; I11.9 Hypertensive heart disease without heart failure; J98.11 Atelectasis; E87.6 Hypokalemia; E78.00 Pure hypercholesterolemia, unspecified; K42.9 Umbilical hernia without obstruction or gangrene; K40.20 Bilateral inguinal hernia, without obstruction or gangrene, not specified as recurrent; M12.88 Other specific arthropathies, not elsewhere classified, other specified site; K80.10 Calculus of gallbladder with chronic cholecystitis without obstruction; I70.90 Unspecified atherosclerosis
CPT/HCPCS: 36415; 71010; 74176; 74181; 76705; 80048; 80053; 80061; 80076; 80307; 81001; 82150; 83036; 83690; 83735; 83880; 84100; 84439; 84443; 84484; 85025; 85610; 85730; 88302; 88304; 93005; 93306; 96374; 96375; 97161; J0360; J0690; J1170; J1644; J1650; J2250; J2270; J2405; J2543; J2710; J2765; J3010; J3480; J7030; J7999

== ENCOUNTER 2017-03-29 11:05 | Outpatient (CLI) | payer OTHER ==
[~2017-03-29] VITALS: Ht 167.6 cm; Wt 71.8 kg
[~2017-03-29 11:05] MED LIST: AMLO-145 PO; HYDR-3498 PO
[2017-03-29 11:18] VITALS: BP 118/66; PULSE 66; RESP 16; Ht 167.6 cm; Wt 71.8 kg
--- NOTE | 2017-03-29 12:20 | PN ---
Date/Time of Note Date/Time of Note DATE: 03/29/17 TIME: 12:15 Outpatient Progress Note Chief Complaint Abdominal pain/hypertension/hyperlipidemia/laparoscopic cholecystectomy/ASHD HPI Abdominal pain/patient was recently admitted with up abdominal pain, patient had acute pancreatitis, patient also has a gallstone, patient had cholecystectomy, no fever chill, no nausea vomiting or jaundice, Hypertension/no headache or dizziness or lightheadedness, Hyperlipidemia/no xanthoma, on medication, side effect, Laparoscopic cholecystectomy/patient has laparoscopy cholecystectomy, no fever chill, ASHD/no chest pain no PND orthopnea, Review of Systems Const: No Fever, no chills, no Wt. loss, no Fatigue, normal appetite, no diaphoresis. Eyes: No pain, no discharge, no redness, no visual change, no foreign body. ENT: No pain, no bleeding, no congestion, no sore throat, no dysphagia, no discharge or rhinitis. Lymph: No adenopathy, no tender nodes, no lymphedema. Resp: No SOB, no cough, no sputum, no wheezing, no chest pain. CV: No chest pain, no palpitaions, no WATKINS, no PND, no edema. GI: Normal appetite, mild epigastric pain which had improved significantly, patient has minimal abdominal distention,, no nausea, no vomiting, no diarrhea, no blood, no constipation. : No frequency, no urgency, no dysuria, no hematuria, no flank pain, no discharge, no bleeding. Musc: No bone/joint pain, no back pain, no neck pain, no knee pain, no restricted ROM. Skin: No rash, no skin lesions, no erythema, no laceration, no bruising, no pruritus. Neuro: No HAWKINS, no dizziness, no syncope, no seizure, no focal-weakness. Endo: No polyuria, no polydypsia, no dry-skin, no temp-intolerance. Psych: No hallucinations, no depression, no anxiety, no suicidal ideation. Ext: No edema, no pain, no ulcer, no weakness. Physical Exam Vital Signs Date Time Temp Pulse Resp B/P Pulse Ox O2 Delivery O2 Flow Rate FiO2 03/29/17 11:18 98.5 66 16 118/66 98 Room Air General Appearance: A 61 year-old male who appears well-developed, well- nourished, in no acute distress. HEENT: Head normocephalic, atraumatic. Pupils equal, round, reactive to light and accommodate. Sclerae are no jaundice. Nasal turbinates pink without erythema or nasal discharge. Mucous membranes pink and moist without lesions. Oropharynx clear without any exudate or discharge. NECK: Supple. Trachea midline, No thyromegaly, No cervical lymphadenopathy, No mass, No carotid bruits, No JVD, Carotid pulses 2+ bilaterally. PULMONARY: Clear to auscultaion bilaterally, No retractions, Chest expansion symmetric bilaterally, no rales, no ronchi, no dulness on percussion. CARDIAC: Normal SI and S2, Regular rate and rythm, no murmur, gallop, or rub. GASTROINTESTINAL: Abdomen is soft, minimal abdominal discomfort, port of entry for laparoscopic cholecystectomy clean,, umbilical hernia and inguinal hernia, reducible, Non Rigid, minimal abdominal distention, Positive bowel sounds x4 quadrants, Liver normal. No tenderness, SKIN: Warm, dry, no rash, no bruise, no echmosis. EXTREMITIES: Bilateral lower extremities no edema, no phlabitus, pulse palpable , no contracture. MUSCULOSKELETAL: Spine Normal, Non-tender, Normal range of motion, No swelling, no deformity, no clubbing, or cyanosis, the patient has no edema to bilateral lower extremities, dorsalis pedis pulses palpable bilaterally. NEUROLOGIC: The patient is awake, alert, oriented, responding to yes/no questions appropriately, moving all extremities, cranial nerve intact, normal strenght, normal power, normal coordination, normal gait. Allergies Coded Allergies: No Known Allergy (Unverified , 03/16/17) PMH Abdominal pain/hypertension/hyperlipidemia/ASHD/abnormal LFTs/bilateral inguinal hernia/DJD/umbilical hernia Social Hx No smoking, used to drink, recently no more drinking after hospitalization, Family Hx Noncontributory Patient History: Hypertension G8 [place] Assessment/Plan Impression Abdominal pain Hypertension Hyperlipidemia Status post cholecystectomy ASHD Umbilical hernia and inguinal hernia neck plan Patient education done about surgery, and hypertension and cirrhosis and heart problem, patient has stopped drinking, patient's family explained that he should never start again, Patient to follow with the primary care physician, Patient has all the medication, patient education done about hernia, Medications Home Meds Active Scripts Hydrocodone Bit-Acetaminophen (Hydrocodone Bit-APAP) 5-325MG Tablet, 1 TAB PO Q4H Y for PAIN LEVEL 4-7 for 7 Days, #10 TAB Prov:CARON MOURA MD 03/22/17 Amlodipine Besylate* (Amlodipine Besylate*) 5 Mg Tablet, 10 MG PO DAILY for 14 Days, #14 TAB Prov:CARON MOURA MD 03/22/17 DOREEN BOSCH MD Mar 29, 2017 12:20
== END 2017-03-29 17:00 | disposition home or self-care (01) ==
LOC: DCC 11:05
PROVIDERS: ATTEND Internal Medicine
DX: R10.9 Unspecified abdominal pain (principal); I10 Essential (primary) hypertension; E78.5 Hyperlipidemia, unspecified; I25.10 Atherosclerotic heart disease of native coronary artery without angina pectoris; M54.2 Cervicalgia; K42.9 Umbilical hernia without obstruction or gangrene; K40.90 Unilateral inguinal hernia, without obstruction or gangrene, not specified as recurrent

== ENCOUNTER 2017-04-04 15:12 | Outpatient (CLI) | payer OTHER ==
[~2017-04-04] VITALS: Ht 160 cm; Wt 72.7 kg
[2017-04-04 15:15] VITALS: BP 126/68; PULSE 70; RESP 18; Ht 160 cm; Wt 72.7 kg
--- NOTE | 2017-04-04 15:51 | PN ---
Date/Time of Note Date/Time of Note DATE: 04/04/17 TIME: 15:51 Assessment/Plan Assessment/Plan Assessment/Plan [facility] Progress Note Date of Service: 04/04/2017 Place of service: [facility] fifth floor telemetry Today's Assessment & Plan: Doing well. No indication of major post operative complications or SSI's. No obvious clinical evidence of pancreatitis. With above assessment, I've recommended the following for today: 1. F/u with PCP 2. F/u with us prn Thank you again for your great care of this very pleasant patient and wonderful family. If there are any questions, please feel free to call me at [phone]. Nature of presenting problem: High severity Please note that, given the multiple number of diagnoses or management options, the moderate amount and/or complexity of data needed to be reviewed, and moderate risk of complications and/or morbidity or mortality, this qualifies as moderate complexity type of decision-making. Disclaimer: Inadvertent spelling and grammatical errors are likely due to EHR/ dictation software use and do not reflect on the quality of delivered patient care. Also, please note that the electronic time recorded on this node does not necessarily reflect the actual time of the visit. Updated clinical summary: A very pleasant 61-year-old gentleman with a few comorbidities being admitted through the emergency department at [facility] for acute pancreatitis, cholelithiasis, and possible early acute cholecystitis. Comorbidities: 1. Acute pancreatitis, possibly multifactorial 2. Cardiomegaly with scattered areas of atelectasis in the bases of the lungs. 3. Hepatomegaly with small gallstones in the gallbladder. 4. Small hiatal hernia. 5. Atherosclerotic vascular disease. 6. Midline umbilical hernia containing fat measuring 1.4 cm AP by 1.7 cm transverse. 7. Bilateral inguinal hernias containing fat. 8. Right degenerative facet arthropathy is at L5-S1. 9. S/p an otherwise uncomplicated laparoscopic cholecystectomy at [facility] 03/20/17 with findings of normal-appearing gallbladder with slight inflammation. Subjective: No major events or complaints since d/c home; no major abd pain and under control with medications; no n/v/d; no sob or cp; + flatus; + BM; + activity Objective: Vitals: See below I's & O's: See below Exam: GENERAL: On exam, the patient was sitting in a chair and appeared to be comfortable and in no acute distress. ABDOMEN: Soft, mild to nontender and nondistended. There are no peritoneal signs or guarding. Incisions c/d/i w/o obvious underlying e/e/d/h. SKIN: Skin appears to be pink and feels warm to touch. NEUROLOGIC: Patient is awake, alert, and follows commands appropriately. Labs: See below Exam/Review of Systems Vital Signs Vitals Vital Signs Date Time Temp Pulse Resp B/P Pulse Ox O2 Delivery O2 Flow Rate FiO2 04/04/17 15:15 98.0 70 18 126/68 97 Room Air ALMAZ HERNÁNDEZ M.D. Apr 04, 2017 15:51
== END 2017-04-04 17:00 | disposition home or self-care (01) ==
LOC: HPC 15:12
PROVIDERS: ATTEND Transplant Surgery
DX: K85.90 Acute pancreatitis without necrosis or infection, unspecified (principal); K81.9 Cholecystitis, unspecified; I51.7 Cardiomegaly; R16.0 Hepatomegaly, not elsewhere classified; K44.9 Diaphragmatic hernia without obstruction or gangrene; I70.8 Atherosclerosis of other arteries; K40.20 Bilateral inguinal hernia, without obstruction or gangrene, not specified as recurrent; M47.897 Other spondylosis, lumbosacral region
CPT/HCPCS: Z7500 ×2; G0463

== ENCOUNTER 2017-04-12 16:09 | Outpatient (CLI) | payer OTHER ==
--- NOTE | 2017-04-04 15:40 | PN ---
Date/Time of Note Date/Time of Note DATE: 04/04/17 TIME: 15:36 Assessment/Plan Assessment/Plan Assessment/Plan [facility] Progress Note Date of Service: 04/04/2017 Place of service: [facility] fifth floor telemetry Today's Assessment & Plan: Doing well. No indication of major post operative complications or SSI's. No obvious clinical evidence of pancreatitis. With above assessment, I've recommended the following for today: 1. F/u with PCP 2. F/u with us prn Thank you again for your great care of this very pleasant patient and wonderful family. If there are any questions, please feel free to call me at [phone]. Nature of presenting problem: High severity Please note that, given the multiple number of diagnoses or management options, the moderate amount and/or complexity of data needed to be reviewed, and moderate risk of complications and/or morbidity or mortality, this qualifies as moderate complexity type of decision-making. Disclaimer: Inadvertent spelling and grammatical errors are likely due to EHR/ dictation software use and do not reflect on the quality of delivered patient care. Also, please note that the electronic time recorded on this node does not necessarily reflect the actual time of the visit. Updated clinical summary: A very pleasant 61-year-old gentleman with a few comorbidities being admitted through the emergency department at [facility] for acute pancreatitis, cholelithiasis, and possible early acute cholecystitis. Comorbidities: 1. Acute pancreatitis, possibly multifactorial 2. Cardiomegaly with scattered areas of atelectasis in the bases of the lungs. 3. Hepatomegaly with small gallstones in the gallbladder. 4. Small hiatal hernia. 5. Atherosclerotic vascular disease. 6. Midline umbilical hernia containing fat measuring 1.4 cm AP by 1.7 cm transverse. 7. Bilateral inguinal hernias containing fat. 8. Right degenerative facet arthropathy is at L5-S1. 9. S/p an otherwise uncomplicated laparoscopic cholecystectomy at [facility] 03/20/17 with findings of normal-appearing gallbladder with slight inflammation. Subjective: No major events or complaints since d/c home; no major abd pain and under control with medications; no n/v/d; no sob or cp; + flatus; + BM; + activity Objective: Vitals: See below I's & O's: See below Exam: GENERAL: On exam, the patient was sitting in a chair and appeared to be comfortable and in no acute distress. ABDOMEN: Soft, mild to nontender and nondistended. There are no peritoneal signs or guarding. Incisions c/d/i w/o obvious underlying e/e/d/h. SKIN: Skin appears to be pink and feels warm to touch. NEUROLOGIC: Patient is awake, alert, and follows commands appropriately. Labs: See below ALMAZ HERNÁNDEZ M.D. Apr 04, 2017 15:40
[~2017-04-12] VITALS: Ht 160 cm; Wt 71.8 kg
[2017-04-12 16:11] VITALS: BP 148/75; PULSE 59; RESP 16; Ht 160 cm; Wt 71.8 kg
--- NOTE | 2017-04-12 16:19 | PN ---
Date/Time of Note Date/Time of Note DATE: 04/12/17 TIME: 16:15 Outpatient Progress Note Chief Complaint Hypertension/perianal itching/ASHD/hyperlipidemia/status post cholecystectomy HPI Hypertension/patient has slightly elevated blood pressure, no headache dizziness lightness, no nausea vomiting, Perianal itching patient has slight perianal itching, patient had recently surgery, no constipation, no other rash, ASHD/no chest pain, no PND orthopnea, no ankle edema, Hyperlipidemia/no xanthoma, on medication, no side effect, Status post cholecystectomy/no nausea vomiting, no abdominal pain, Review of Systems Const: No Fever, no chills, no Wt. loss, no Fatigue, normal appetite, no diaphoresis. Eyes: No pain, no discharge, no redness, no visual change, no foreign body. ENT: No pain, no bleeding, no congestion, no sore throat, no dysphagia, no discharge or rhinitis. Lymph: No adenopathy, no tender nodes, no lymphedema. Resp: No SOB, no cough, no sputum, no wheezing, no chest pain. CV: No chest pain, no palpitaions, no WATKINS, no PND, no edema. GI: Normal appetite, no pain, no nausea, no vomiting, no diarrhea, no blood, no constipation. : No frequency, no urgency, no dysuria, no hematuria, no flank pain, no discharge, no bleeding. Musc:, no back pain, no neck pain, no knee pain, no restricted ROM. Skin: No rash, no skin lesions, no erythema, no laceration, no bruising, perianal pruritus. Neuro: No HAWKINS, no dizziness, no syncope, no seizure, no focal-weakness. Endo: No polyuria, no polydypsia, no dry-skin, no temp-intolerance. Psych: No hallucinations, no depression, no anxiety, no suicidal ideation. Ext: No edema, no pain, no ulcer, no weakness. Physical Exam Vital Signs Date Time Temp Pulse Resp B/P Pulse Ox O2 Delivery O2 Flow Rate FiO2 04/12/17 16:11 98.2 59 16 148/75 95 Room Air General Appearance: A 61 year-old male who appears well-developed, well- nourished, in no acute distress. HEENT: Head normocephalic, atraumatic. Pupils equal, round, reactive to light and accommodate. Sclerae are no jaundice. Nasal turbinates pink without erythema or nasal discharge. Mucous membranes pink and moist without lesions. Oropharynx clear without any exudate or discharge. NECK: Supple. Trachea midline, No thyromegaly, No cervical lymphadenopathy, No mass, No carotid bruits, No JVD, Carotid pulses 2+ bilaterally. PULMONARY: Clear to auscultaion bilaterally, No retractions, Chest expansion symmetric bilaterally, no rales, no ronchi, no dulness on percussion. CARDIAC: Normal SI and S2, Regular rate and rythm, no murmur, gallop, or rub. GASTROINTESTINAL: Abdomen is soft, non-tender, Non Rigid, No distention, Positive bowel sounds x4 quadrants, Liver normal. Status post laparoscopic cholecystectomy, port of entry clean, perianal pruritus, SKIN: Warm, dry, no rash, no bruise, no echmosis. EXTREMITIES: Bilateral lower extremities normal, no edema, no phlabitus, pulse palpable, no contracture. MUSCULOSKELETAL: Spine Normal, Non-tender, Normal range of motion, No swelling, no deformity, no clubbing, or cyanosis, the patient has no edema to bilateral lower extremities, dorsalis pedis pulses palpable bilaterally. NEUROLOGIC: The patient is awake, alert, oriented, responding to yes/no questions appropriately, moving all extremities, cranial nerve intact, normal strenght, normal power, normal coordination, normal gait. Allergies Coded Allergies: No Known Allergy (Unverified , 03/16/17) PMH No change Social Hx No change Family Hx No change Patient History: Hypertension G8 SIBLING Assessment/Plan Impression Hypertension/perianal itching/ASHD/hyperlipidemia/status post cholecystectomy laparoscopic Plan Patient had laparoscopic cholecystectomy, patient doing very well, no fever chill, no abdominal pain, no redness of the port of entry, will monitor closely, Patient has slight elevated blood pressure, patient advised to follow with the primary care physician, patient does not have any medication, I will refill amlodipine 10 mg p.o. daily #30 until patient sees the primary care physician, Patient encouraged to follow with the primary care physician, Hydrocortisone cream perianal twice a day 60 g for itching, Medications Home Meds Active Scripts Amlodipine Besylate* (Amlodipine Besylate*) 5 Mg Tablet, 10 MG PO DAILY for 14 Days, #14 TAB Prov:CARON MOURA MD 03/22/17 Discontinued Scripts Hydrocodone Bit-Acetaminophen (Hydrocodone Bit-APAP) 5-325MG Tablet, 1 TAB PO Q4H Y for PAIN LEVEL 4-7 for 7 Days, #10 TAB Prov:CARON MOURA MD 03/22/17 DOREEN BOSCH MD Apr 12, 2017 16:19
== END 2017-04-12 16:28 | disposition home or self-care (01) ==
LOC: DCC 16:09
PROVIDERS: ATTEND Internal Medicine
DX: I10 Essential (primary) hypertension (principal); I25.10 Atherosclerotic heart disease of native coronary artery without angina pectoris; E78.5 Hyperlipidemia, unspecified; L29.0 Pruritus ani